=== PATIENT | female | born 1935 | race Caucasian/White ===

== ENCOUNTER 2016-07-29 10:55 | Inpatient (IN) | payer MEDICARE, BC, OTHER ==
[2016-07-29] MEDS ORDERED: ALTEPLASE 2 MG VIAL (CATHFLO) IV STA (11:15)
--- NOTE | 2016-07-29 11:29 | ED ---
General Adult HPI - General Source: EMS, RN notes reviewed Mode of arrival: EMS Limitations: no limitations <Nancy Hassan - Last Filed: 07/29/16 16:37> <James Mcgrath - Last Filed: 07/29/16 16:53> - General Chief complaint: Recheck/Abnormal Lab/Rx Stated complaint: ReCheck Time Seen by Provider: 07/29/16 11:10 - History of Present Illness Initial comments: 80-year-old female presents to the emergency department with a chief complaint of poor functioning Mediport. The patient's Mediport appears to be clogged she was sent here to have it fixed. Patient denies any other symptoms she denies any pain. She states she simply to here several Mediport fixed. Patient denies any recent fever, chills, shortness of breath, chest pain, back pain, abdominal pain, nausea vomiting, numbness or tingling, dysuria or hematuria, constipation or diarrhea, headaches or visual changes, or any other current symptoms. (Nancy Hassan) - Related Data Home Medications Medication Instructions Recorded Confirmed Diclofenac Sodium Gel [Voltaren 4 gm TOPICAL Q12H PRN 09/01/13 07/29/16 Gel] Montelukast Sodium [Singulair] 10 mg PO HS@2100 09/01/13 07/29/16 Phenytoin Sodium Extended 200 mg PO BID@0900,1700 09/01/13 07/29/16 [Dilantin] sitaGLIPtin [Januvia] 100 mg PO DAILY@0900 09/01/13 07/29/16 glipiZIDE [Glucotrol XL] 2.5 mg PO DAILY@1700 05/06/14 07/29/16 Isosorbide Mononitrate ER [Imdur] 30 mg PO DAILY 02/26/15 07/29/16 Gabapentin [Neurontin] 100 mg PO DAILY 12/21/15 07/29/16 Rivaroxaban [Xarelto] 20 mg PO DAILY 12/21/15 07/29/16 Tiotropium [place] [Spiriva 1 cap INHALATION RT-DAILY 12/21/15 07/29/16 Respimat] Atorvastatin [Lipitor] 10 mg PO HS@2100 01/26/16 07/29/16 Levothyroxine Sodium [Synthroid] 200 mcg PO DAILY@0600 01/26/16 07/29/16 Losartan-Hctz 50-12.5 mg [Hyzaar 1 tab PO DAILY 01/26/16 07/29/16 50-12.5] Omeprazole 20 mg PO DAILY 01/26/16 07/29/16 Oxybutynin Xl [Ditropan XL] 5 mg PO DAILY 01/26/16 07/29/16 Hydrocodone/Acetaminophen [[place] 1 tab PO Q6H PRN 05/19/16 07/29/16 10-325] Antifungal Power 1 applic TOPICAL BID 07/29/16 07/29/16 Calcium Carbonate [Calcium] 600 mg PO DAILY 07/29/16 07/29/16 Cetirizine HCl [Zyrtec] 10 mg PO HS@209907/29/16 07/29/16 Clotrimazole/Betamethasone Dip 1 applic TOPICAL BID 07/29/16 07/29/16 [Lotrisone Cream] Furosemide [Lasix] 40 mg PO BID@0600,1400 07/29/16 07/29/16 Metoprolol Tartrate [Lopressor] 12.5 mg PO HS@209907/29/16 07/29/16 Mylanta Susp 30 ml PO Q4H PRN 07/29/16 07/29/16 Potassium Chloride ER [K-Dur 20] 20 meq PO TID 07/29/16 07/29/16 risperiDONE [RisperDAL] 0.25 mg PO HS@209907/29/16 07/29/16 Previous Rx's Medication Instructions Recorded Nitroglycerin Sl Tabs [Nitrostat] 0.4 mg SUBLINGUAL Q5M PRN #0 tab 04/02/15 HYDROcodone/APAP 10-325MG [[place] 1 tab PO BID PRN #60 tab 03/26/16 10-325] Ipratropium-Albuterol Nebulize 3 ml INHALATION RT-Q2H PRN #0 03/26/16 [Duoneb 0.5 mg-3 mg/3 ml Soln] ampul.neb Ipratropium-Albuterol Nebulize 3 ml INHALATION RT-QID ampul.neb 03/26/16 [Duoneb 0.5 mg-3 mg/3 ml Soln] Allergies Allergy/AdvReac Type Severity Reaction Status Date / Time iodine Allergy Itching Verified 07/29/16 11:04 nystatin Allergy Rash/Hives Verified 07/29/16 11:04 orange juice Allergy Unknown Verified 07/29/16 11:04 Penicillins Allergy Rash/Hives Verified 07/29/16 11:04 fluticasone propionate AdvReac Nausea & Verified 07/29/16 11:04 [From Advair Diskus] Vomiting methylprednisolone sodium AdvReac Chest Pain Verified 07/29/16 11:04 succinate [From Solu-Medrol] salmeterol xinafoate AdvReac Nausea & Verified 07/29/16 11:04 [From Advair Diskus] Vomiting vitamin b12/liver shots Allergy Rash/Hives Uncoded 05/19/16 15:14 Review of Systems ROS Other: All systems not noted in ROS Statement are negative. <Nancy Hassan - Last Filed: 07/29/16 16:37> ROS Other: All systems not noted in ROS Statement are negative. <James Mcgrath - Last Filed: 07/29/16 16:53> ROS Statement: Those systems with pertinent positive or pertinent negative responses have been documented in the HPI. Past Medical History Past Medical History: Atrial Fibrillation, Asthma, Coronary Artery Disease (CAD) , Cancer, Chest Pain / Angina, Heart Failure, COPD, Diabetes Mellitus, Deep Vein Thrombosis (DVT), Eye Disorder, GERD/Reflux, GI Bleed, Hearing Disorder / Deafness, Hyperlipidemia, Hypertension, Osteoarthritis (OA), Pneumonia, Seizure Disorder, Thyroid Disorder, Vascular Disorder Additional Past Medical History / Comment(s): Recent UTI with completion of ABX , cellulitis belateral lower extremities, exacerbation of asthma, and weakness, lung cancer(uncertain which side) tx with chemotherapy, Uses home O2 at 2L/NC at nite, last seizure 2007, very [place] L ear, NIDDM, near syncopy, ischemic heart disease, R shoulder arthiritis ,carpal tunnel L wrist, L lower leg/ankle dvt in 1989, chronic lower leg/pedal edema, chronic lower extremity cellulitis, has had wounds under abdominal fold, neuropathy L hand, rhinitis- allergy shots q 2 weeks, lower GI bleed, colitis, anemia, gait dysfunction/debility, macular degeneration bilaterally. History of Any Multi-Drug Resistant Organisms: MRSA Date of last positivie culture/infection: 12/22/2013 MDRO Source:: Left Thigh Past Surgical History: Adenoidectomy, Appendectomy, Bladder Surgery, Breast Surgery, Ear Surgery, Heart Catheterization With Stent, Hysterectomy, Orthopedic Surgery, Tonsillectomy Additional Past Surgical History / Comment(s): bilateral eyelid surgery, infusaport lt subclavian placed 08/24/12, R subclavian infusaport inserted and removed, L shoulder total, R and L knee replacements with the L knee having been done twice, R and L hip replacements, irena cataract removed, L ear surgery- infection with sx, heart stents x2, embolectomy L ankle, breast lumpectomy-pt doesn't know which side or if cancerous, bladder suspension, bronchoscopy, R/L carpal tunnel releases. Past Anesthesia/Blood Transfusion Reactions: No Reported Reaction Additional Past Anesthesia/Blood Transfusion Reaction / Comment(s): Pt has had blood transfusion and no reaction. Date of Last Stent Placement:: 1993 Past Psychological History: No Psychological Hx Reported Additional Psychological History / Comment(s): Pt lives in her own home with her son. Son does the cooking and transports pt wherever she needs to go. Son also manages her meds. Pts mikael is her DPOA. Pt performs her some of her own ADL' s. She ambulates with a walker which has a seat so she can rest if she wants to DENIES ANY FALLS. Pt has home care . She has an aide that showers patient and makes her bed. Smoking Status: Former smoker Past Alcohol Use History: None Reported Additional Past Alcohol Use History / Comment(s): Pt started smoking at age 13 yrs 1949). Pt states she quit smoking in 1998. Past Drug Use History: None Reported - Past Family History Father Family Medical History: Coronary Artery Disease (CAD) Mother Family Medical History: No Reported History Additional Family Medical History / Comment(s): colon <Nancy Hassan - Last Filed: 07/29/16 16:37> General Exam Limitations: no limitations <Nancy Hassan - Last Filed: 07/29/16 16:37> <James Mcgrath - Last Filed: 07/29/16 16:53> - General Exam Comments Initial Comments: General: The patient is awake and alert, in no distress, and does not appear acutely ill. Eye: Pupils are equal, round. Ears, nose, mouth and throat: There are moist mucous membranes. Neck: The neck is supple, there is no tenderness. Cardiovascular: There is a regular rate and rhythm. No murmur, rub or gallop is appreciated. Respiratory: Lungs are clear to auscultation, respirations are non-labored, breath sounds are equal. No wheezes, stridor, rales, or rhonchi. Back: There is no tenderness to palpation in the midline. There is no obvious deformity. No rashes noted. Musculoskeletal: Normal ROM, no tenderness, There is no pedal edema. There is no calf tenderness or swelling. Sensation intact. Pulses equal bilaterally 2+. Neurological: CN II-XII intact, There are no obvious motor or sensory deficits. Coordination appears grossly intact. Speech is normal. Skin: Skin is warm and dry and no rashes or lesions are noted. Psychiatric: Cooperative, appropriate mood & affect, normal judgment. (Nancy Hassan) EKG Findings - EKG Comments: EKG Findings:: Atrial fibrillation, right bundle-branch block, ventricular rate 74, castration 152 <Nancy Hassan - Last Filed: 07/29/16 16:37> Medical Decision Making - Lab Data Result diagrams: 07/29/16 15:22 07/29/16 15:22 <Nancy Hassan - Last Filed: 07/29/16 16:37> - Lab Data Result diagrams: 07/29/16 15:22 07/29/16 15:22 <James Mcgrath - Last Filed: 07/29/16 16:53> - Medical Decision Making 80-year-old female presents emergency department with chief complaint of clogged Mediport. Upon further discussion with the family they state that last night she appeared to have a syncopal episode and she was disoriented. They state that she seemed to be acting abnormal and they are concerned. They state they feel as if she needs more help. This time we did do blood work for the patient that does not show any acute findings however the patient does have concern for this behavior. Patient's lab work is reviewed. As well as CAT scan. At this time there is concern this may have been a syncopal event versus other possible etiologies. CAT scan does not show any acute findings at this time. We will admit the patient to further assess this syncopal like episode with cardiac rule out. This is discussed with the family who is in agreement with plan. (Nancy Hassan) Further discussion had with son who is concerned patient may have had a syncopal episode. Case was also discussed in detail with Dr. Wood, who will admit for Dr. Cotton with consults for Dr. Edgar and cardiology. (James Mcgrath) - Lab Data Lab Results 07/29/16 07/29/16 07/29/16 Range/Units 13:24 14:00 14:00 WBC (3.8-10.6) k/uL RBC (3.80-5.40) m/uL Hgb (11.4-16.0) gm/dL Hct (34.0-46.0) % MCV (80.0-100.0) fL MCH (25.0-35.0) pg MCHC (31.0-37.0) g/dL RDW (11.5-15.5) % Plt Count (150-450) k/uL Neutrophils % % Lymphocytes % % Monocytes % % Eosinophils % % Basophils % % Neutrophils # (1.3-7.7) k/uL Lymphocytes # (1.0-4.8) k/uL Monocytes # (0-1.0) k/uL Eosinophils # (0-0.7) k/uL Basophils # (0-0.2) k/uL Hypochromasia PT (9.0-12.0) sec INR (<1.1) APTT (22.0-30.0) sec Sodium (137-145) mmol/L Potassium (3.5-5.1) mmol/L Chloride (98-107) mmol/L Carbon Dioxide (22-30) mmol/L Anion Gap mmol/L BUN (7-17) mg/dL Creatinine (0.52-1.04) mg/dL Est GFR (MDRD) Af Amer (>60 ml/min/1.73 sqM) Est GFR (MDRD) Non-Af (>60 ml/min/1.73 sqM) Glucose (74-99) mg/dL Calcium (8.4-10.2) mg/dL Total Bilirubin (0.2-1.3) mg/dL AST (14-36) U/L ALT (9-52) U/L Alkaline Phosphatase (38-126) U/L Total Creatine Kinase 31 (30-135) U/L CK-MB (CK-2) 0.5 (0.0-2.4) ng/mL CK-MB (CK-2) Rel Index 1.6 Troponin I <0.012 (0.000-0.034) ng/mL NT-Pro-B Natriuret Pep 996 pg/mL Total Protein (6.3-8.2) g/dL Albumin (3.5-5.0) g/dL Urine Color Yellow Urine Appearance Cloudy H (Clear) Urine pH 7.5 (5.0-8.0) Ur Specific [place] 1.012 (1.001-1.035) Urine Protein Trace H (Negative) Urine Glucose (UA) Negative (Negative) Urine Ketones Negative (Negative) Urine Blood Negative (Negative) Urine Nitrite Negative (Negative) Urine Bilirubin Negative (Negative) Urine Urobilinogen <2.0 (<2.0) mg/dL Ur Leukocyte Esterase Negative (Negative) Urine RBC <1 (0-5) /hpf Urine WBC <1 (0-5) /hpf Ur Squamous Epith Cells 4 (0-4) /hpf Amorphous Sediment Rare H (None) /hpf Hyaline Casts 3 H (0-2) /lpf Urine Mucus Rare H (None) /hpf 07/29/16 07/29/16 07/29/16 Range/Units 14:00 15:22 15:22 WBC 9.1 (3.8-10.6) k/uL RBC 3.62 L (3.80-5.40) m/uL Hgb 10.3 L (11.4-16.0) gm/dL Hct 33.1 L (34.0-46.0) % MCV 91.5 (80.0-100.0) fL MCH 28.3 (25.0-35.0) pg MCHC 31.0 (31.0-37.0) g/dL RDW 15.0 (11.5-15.5) % Plt Count 324 (150-450) k/uL Neutrophils % 55 % Lymphocytes % 32 % Monocytes % 7 % Eosinophils % 3 % Basophils % 1 % Neutrophils # 5.0 (1.3-7.7) k/uL Lymphocytes # 2.9 (1.0-4.8) k/uL Monocytes # 0.6 (0-1.0) k/uL Eosinophils # 0.3 (0-0.7) k/uL Basophils # 0.0 (0-0.2) k/uL Hypochromasia Slight PT 12.6 H (9.0-12.0) sec INR 1.3 (<1.1) APTT 26.2 (22.0-30.0) sec Sodium 138 (137-145) mmol/L Potassium 3.7 (3.5-5.1) mmol/L Chloride 96 L (98-107) mmol/L Carbon Dioxide 33 H (22-30) mmol/L Anion Gap 9 mmol/L BUN 17 (7-17) mg/dL Creatinine 0.85 (0.52-1.04) mg/dL Est GFR (MDRD) Af Amer >60 (>60 ml/min/1.73 sqM) Est GFR (MDRD) Non-Af >60 (>60 ml/min/1.73 sqM) Glucose 85 (74-99) mg/dL Calcium 8.6 (8.4-10.2) mg/dL Total Bilirubin 0.4 (0.2-1.3) mg/dL AST 21 (14-36) U/L ALT 22 (9-52) U/L Alkaline Phosphatase 164 H (38-126) U/L Total Creatine Kinase (30-135) U/L CK-MB (CK-2) (0.0-2.4) ng/mL CK-MB (CK-2) Rel Index Troponin I (0.000-0.034) ng/mL NT-Pro-B Natriuret Pep pg/mL Total Protein 7.2 (6.3-8.2) g/dL Albumin 3.2 L (3.5-5.0) g/dL Urine Color Urine Appearance (Clear) Urine pH (5.0-8.0) Ur Specific [place] (1.001-1.035) Urine Protein (Negative) Urine Glucose (UA) (Negative) Urine Ketones (Negative) Urine Blood (Negative) Urine Nitrite (Negative) Urine Bilirubin (Negative) Urine Urobilinogen (<2.0) mg/dL Ur Leukocyte Esterase (Negative) Urine RBC (0-5) /hpf Urine WBC (0-5) /hpf Ur Squamous Epith Cells (0-4) /hpf Amorphous Sediment (None) /hpf Hyaline Casts (0-2) /lpf Urine Mucus (None) /hpf Disposition Time of Disposition: 16:00 Decision Date: 07/29/16 Decision Time: 16:00 <Nancy Hassan - Last Filed: 07/29/16 16:37> <James Mcgrath - Last Filed: 07/29/16 16:53> Clinical Impression: Syncope, At risk for readmission to hospital, Dyspnea, Chronic ischemic heart disease, Right bundle branch block, Atrial fibrillation Disposition: ADMITTED IP TO THIS HOSP Condition: Stable Referrals: Margarito Cotton MD [Primary Care Provider] - 1-2 days
--- NOTE | 2016-07-29 12:08 | XR ---
EXAMINATION TYPE: XR chest 2V DATE OF EXAM: 07/29/2016 12:02 PM COMPARISON: Prior chest x-ray March 24, 2016 HISTORY: Cough per order. Poor functioning Mediport catheter. TECHNIQUE: Frontal and lateral views of the chest are obtained. FINDINGS: A left subclavian Mediport catheter is stable in appearance. There is chronic parenchymal c hange without suspicious focal air space opacity, pleural effusion, or pneumothorax seen. The cardia c silhouette size is enlarged. Metallic hardware left shoulder level is partially imaged. Advanced de generative change right glenohumeral joint is redemonstrated. Surgical clips in the left breast are s een on lateral view. IMPRESSION: Cardiomegaly and chronic parenchymal changes without acute pulmonary process.
[2016-07-29] MEDS ORDERED: LIDOCAINE-PRILOCAINE 2.5-2.5% CREAM 5 GM TUBE TOPICAL STA (12:33)
[2016-07-29] MEDS ORDERED: SODIUM CHLORIDE 0.9% 1,000 ML IV STA (13:00)
[2016-07-29 13:58] LABS: Amorphous Sediment,Urine Rare /hpf; Appearance,Urine Cloudy (Clear); Bilirubin,Urine Negative (Negative); Glucose,Urine (UA) Negative (Negative); Ketones,Urine Negative (Negative); Leukocyte Esterase,Urine Negative (Negative); Mucus,Urine Rare /hpf; Nitrite,Urine Negative (Negative); PH, Urine 7.5 (5.0-8.0); Particle Count 5051; Protein,Urine Trace (Negative); RBC,Urine <1 /hpf (0-5); Specific Gravity,Urine 1.012 (1.001-1.035); Squamous Epithelial Cell,Urine 4 /hpf (0-4); UA Billing (MACRO vs. MICRO) MICRO; Urobilinogen,Urine <2.0 mg/dL (<2.0); WBC,Urine <1 /hpf (0-5)
[2016-07-29 14:30] LABS: Creatine Kinase 31 U/L (30-135)
[2016-07-29 14:38] LABS: INR 1.3 (<1.1); Partial Thromboplastin Time 26.2 sec (22.0-30.0); Prothrombin Time 12.6 sec (9.0-12.0)
[2016-07-29 14:41] LABS: Creatine Kinase MB 0.5 ng/mL (0.0-2.4); Troponin I <0.012 ng/mL (0.000-0.034)
[2016-07-29] MEDS ORDERED: LORazepam 2 MG/ML SYRINGE IV STA (15:00)
[2016-07-29 15:26] LABS: Basophils % (A) 1 %; CHCM 30.7; Eosinophils # (A) 0.3 k/uL (0-0.7); Eosinophils % (A) 3 %; HCT 33.1 % (34.0-46.0); HDW 2.44; HGB 10.3 gm/dL (11.4-16.0); Hypochromasia Slight; Luc # (Auto) 0.27; Luc % (Auto) 3; Lymphocytes # (A) 2.9 k/uL (1.0-4.8); Lymphocytes % (A) 32 %; MCH 28.3 pg (25.0-35.0); MCV 91.5 fL (80.0-100.0); Mean Platelet Volume 6.9; Monocytes # (A) 0.6 k/uL (0-1.0); Monocytes % (A) 7 %; Neutrophils % (A) 55 %; RBC 3.62 m/uL (3.80-5.40); WBC 9.1 k/uL (3.8-10.6)
[2016-07-29 15:40] LABS: ALT 22 U/L (9-52); AST 21 U/L (14-36); Alkaline Phosphatase 164 U/L (38-126); Anion Gap 9 mmol/L; Blood Urea Nitrogen 17 mg/dL (7-17); Calcium 8.6 mg/dL (8.4-10.2); Carbon Dioxide 33 mmol/L (22-30); Chloride 96 mmol/L (98-107); Glucose 85 mg/dL (74-99); Non-African American GFR(MDRD) >60 (>60 ml/min/1.73 sqM); Potassium 3.7 mmol/L (3.5-5.1); Sodium 138 mmol/L (137-145); Total Bilirubin 0.4 mg/dL (0.2-1.3); Total Protein 7.2 g/dL (6.3-8.2)
--- NOTE | 2016-07-29 15:55 | CT ---
EXAMINATION TYPE: CT brain wo con DATE OF EXAM: 07/29/2016 3:51 PM COMPARISON: 08/09/2015 HISTORY: mental status changes CT DLP: 1072.[address] of the brain was performed. The ventricles, basal cisterns and sulci overlying the cerebral convexities demonstrate mild enlargem ent. There is no evidence for intracranial hemorrhage or sulcal effacement. There is decreased attenuation about the periventricular white matter and deep white matter of both c erebral hemispheres, compatible with chronic small vessel ischemia. Differential diagnosis does inclu de demyelination. No mass effects are seen.No midline shift. Osseous calvarium is intact. If symptoms persist consider MRI. IMPRESSION: 1. Age related atrophic and chronic small vessel ischemic change without acute intracranial process s een at this time.
[2016-07-29] MEDS ORDERED: HYDROcodone/APAP 10-325MG 1 EACH TAB PO PRN ×2 (16:00)
[2016-07-29] MEDS ORDERED: NITROGLYCERIN SL TABS 0.4 MG TAB SUBLINGUAL PRN (16:00)
[2016-07-29] MEDS ORDERED: MAG HYDROX/AL HYDROX/SIMETH 30 ML CUP PO PRN (16:00)
[2016-07-29] MEDS ORDERED: DICLOFENAC SODIUM GEL 100 GM TUBE TOPICAL PRN (16:00)
[2016-07-29] MEDS ORDERED: IPRATROPIUM-ALBUTEROL 3 ML NEB INHALATION PRN (16:00)
[2016-07-29] MEDS ORDERED: NALOXONE 0.4 MG/ML 1 ML VIAL IV PRN (16:37)
[2016-07-29] MEDS: PHENYTOIN SODIUM EXTENDED 100 MG CAP PO SCH ×2 (18:58→19:01)
--- NOTE | 2016-07-29 20:48 | P.CNNES ---
History of Present Illness Consult date: 07/29/16 Reason for Consult: Patient with syncopal episode and confusion. History of Present Illness: This patient is a 80-year-old right-handed white female was brought into the emergency room today for evaluation of a poorly functioning MediPort. Patient is currently residing at [facility] and was brought in for further evaluation. Patient has multiple complex medical issues in the past including chronic atrial fibrillation, diabetes mellitus, seizure disorder, and cardiac arrhythmia. She states that she was not feeling well and had episode of dizziness and lightheadedness. Apparently she has had multiple admissions in the past for syncope. She is currently on Dilantin monotherapy for seizure management as well. Dilantin level was not checked today on admission through the ER. A stat Dilantin is pending at this time. Patient states that she has been taking all of her medications as prescribed. She states the MediPort was the main reason for admission to the hospital ER today. She is able to provide fairly accurate history but is unaware of this syncopal episode earlier today. Apparently the family noted that last night she appeared to have had a syncopal episode at the [facility]. She was very disoriented. They feel that her mental status has not returned normal as well. She was brought in to the emergency room and was seen in the ER by Dr. Mcgrath. She was sent for a computed tomography scan of the brain today which revealed age-related atrophy and chronic small vessel ischemic changes. No acute intracranial process was detected. Patient states she is recovering from recent episode of weakness. She has been treated for recent episode of sepsis. She did have a syncopal episode in August of last year which was negative for workup. She is able to provide fairly good history but once again is not aware of the details of a syncopal episode yesterday. Neurology is now consulted for further evaluation and recommendations. Review of Systems Constitutional: Denies chills, Denies fever Eyes: denies blurred vision, denies pain Ears, nose, mouth and throat: Denies headache, Denies sore throat Cardiovascular: Denies chest pain, Denies shortness of breath Respiratory: Denies cough Gastrointestinal: Denies abdominal pain, Denies diarrhea, Denies nausea, Denies vomiting Genitourinary: Denies dysuria, Denies hematuria Musculoskeletal: Denies myalgias Integumentary: Denies pruritus, Denies rash Neurological: Reports change in mentation, Reports gait dysfunction, Reports syncope, Denies numbness, Denies weakness Psychiatric: Denies anxiety, Denies depression Endocrine: Denies fatigue, Denies weight change Past Medical History Past Medical History: Atrial Fibrillation, Asthma, Coronary Artery Disease (CAD) , Cancer, Chest Pain / Angina, Heart Failure, COPD, Diabetes Mellitus, Deep Vein Thrombosis (DVT), Eye Disorder, GERD/Reflux, GI Bleed, Hearing Disorder / Deafness, Hyperlipidemia, Hypertension, Osteoarthritis (OA), Pneumonia, Seizure Disorder, Thyroid Disorder, Vascular Disorder Additional Past Medical History / Comment(s): Recent UTI with completion of ABX , cellulitis belateral lower extremities, exacerbation of asthma, and weakness, lung cancer(uncertain which side) tx with chemotherapy, Uses home O2 at 2L/NC at nite, last seizure 2007, very [place] L ear, NIDDM, near syncopy, ischemic heart disease, R shoulder arthiritis ,carpal tunnel L wrist, L lower leg/ankle dvt in 1989, chronic lower leg/pedal edema, chronic lower extremity cellulitis, has had wounds under abdominal fold, neuropathy L hand, rhinitis- allergy shots q 2 weeks, lower GI bleed, colitis, anemia, gait dysfunction/debility, macular degeneration bilaterally. History of Any Multi-Drug Resistant Organisms: MRSA Date of last positivie culture/infection: 12/22/2013 MDRO Source:: Left Thigh Past Surgical History: Adenoidectomy, Appendectomy, Bladder Surgery, Breast Surgery, Ear Surgery, Heart Catheterization With Stent, Hysterectomy, Orthopedic Surgery, Tonsillectomy Additional Past Surgical History / Comment(s): bilateral eyelid surgery, infusaport lt subclavian placed 08/24/12, R subclavian infusaport inserted and removed, L shoulder total, R and L knee replacements with the L knee having been done twice, R and L hip replacements, irena cataract removed, L ear surgery- infection with sx, heart stents x2, embolectomy L ankle, breast lumpectomy-pt doesn't know which side or if cancerous, bladder suspension, bronchoscopy, R/L carpal tunnel releases. Past Anesthesia/Blood Transfusion Reactions: No Reported Reaction Additional Past Anesthesia/Blood Transfusion Reaction / Comment(s): Pt has had blood transfusion and no reaction. Date of Last Stent Placement:: 1993 Past Psychological History: No Psychological Hx Reported Additional Psychological History / Comment(s): PT CURRENTLY RESIDES AT [facility]. Pts mikael is her DPOA. Pt NEEDS ASSIT W/ADLS AND FROM BED TO CHAIR. Smoking Status: Former smoker Past Alcohol Use History: None Reported Additional Past Alcohol Use History / Comment(s): Pt started smoking at age 13 yrs 1949). Pt states she quit smoking in 1998. Past Drug Use History: None Reported - Past Family History Father Family Medical History: Coronary Artery Disease (CAD) Mother Family Medical History: Cancer Additional Family Medical History / Comment(s): colon Medications and Allergies Home Medications Medication Instructions Recorded Confirmed Type Diclofenac Sodium Gel [Voltaren 4 gm TOPICAL Q12H PRN 09/01/13 07/29/16 History Gel] Montelukast Sodium [Singulair] 10 mg PO HS@2100 09/01/13 07/29/16 History Phenytoin Sodium Extended 200 mg PO BID@0900,1700 09/01/13 07/29/16 History [Dilantin] sitaGLIPtin [Januvia] 100 mg PO DAILY@0900 09/01/13 07/29/16 History glipiZIDE [Glucotrol XL] 2.5 mg PO DAILY@1700 05/06/14 07/29/16 History Isosorbide Mononitrate ER [Imdur] 30 mg PO DAILY 02/26/15 07/29/16 History Gabapentin [Neurontin] 100 mg PO DAILY 12/21/15 07/29/16 History Rivaroxaban [Xarelto] 20 mg PO DAILY 12/21/15 07/29/16 History Tiotropium [place] [Spiriva 1 cap INHALATION RT-DAILY 12/21/15 07/29/16 History Respimat] Atorvastatin [Lipitor] 10 mg PO HS@2100 01/26/16 07/29/16 History Levothyroxine Sodium [Synthroid] 200 mcg PO DAILY@0600 01/26/16 07/29/16 History Losartan-Hctz 50-12.5 mg [Hyzaar 1 tab PO DAILY 01/26/16 07/29/16 History 50-12.5] Omeprazole 20 mg PO DAILY 01/26/16 07/29/16 History Oxybutynin Xl [Ditropan XL] 5 mg PO DAILY 01/26/16 07/29/16 History Hydrocodone/Acetaminophen [[place] 1 tab PO Q6H PRN 05/19/16 07/29/16 History 10-325] Antifungal Power 1 applic TOPICAL BID 07/29/16 07/29/16 History Calcium Carbonate [Calcium] 600 mg PO DAILY 07/29/16 07/29/16 History Cetirizine HCl [Zyrtec] 10 mg PO HS@209907/29/16 07/29/16 History Clotrimazole/Betamethasone Dip 1 applic TOPICAL BID 07/29/16 07/29/16 History [Lotrisone Cream] Furosemide [Lasix] 40 mg PO BID@0600,1400 07/29/16 07/29/16 History Metoprolol Tartrate [Lopressor] 12.5 mg PO HS@209907/29/16 07/29/16 History Mylanta Susp 30 ml PO Q4H PRN 07/29/16 07/29/16 History Potassium Chloride ER [K-Dur 20] 20 meq PO TID 07/29/16 07/29/16 History risperiDONE [RisperDAL] 0.25 mg PO HS@209907/29/16 07/29/16 History Allergies Allergy/AdvReac Type Severity Reaction Status Date / Time iodine Allergy Itching Verified 07/29/16 11:04 nystatin Allergy Rash/Hives Verified 07/29/16 11:04 orange juice Allergy Unknown Verified 07/29/16 11:04 Penicillins Allergy Rash/Hives Verified 07/29/16 11:04 fluticasone propionate AdvReac Nausea & Verified 07/29/16 11:04 [From Advair Diskus] Vomiting methylprednisolone sodium AdvReac Chest Pain Verified 07/29/16 11:04 succinate [From Solu-Medrol] peas AdvReac Unknown Verified 07/29/16 20:02 salmeterol xinafoate AdvReac Nausea & Verified 07/29/16 11:04 [From Advair Diskus] Vomiting vitamin b12/liver shots Allergy Rash/Hives Uncoded 05/19/16 15:14 Physical Examination - Vital Signs Vital Signs: Vital Signs Temp Pulse Resp BP Pulse Ox 07/29/16 19:29 98.3 F 81 20 152/77 95 07/29/16 18:49 98.7 F 84 18 143/64 98 - Constitutional General appearance: cooperative, obese - EENT EENT: PERRL, mucous membranes moist - Respiratory Respiratory: lungs clear, normal breath sounds - Cardiovascular Cardiovascular: normal S1, normal S2 Extremities: no peripheral edema bilaterally - Gastrointestinal Gastrointestinal: normoactive bowel sounds - Integumentary Integumentary: normal - Neurologic Cranial nerve examination: PERRL, EOMI, VFF, V1/V2/V3 grossly intact, face symmetric, tongue midline, intact gag reflex, intact corneal reflex, normal palatal elevation Speech examination: intact Sensorimotor examination: intact Detailed motor examination: grossly full strength in all extremities Motor examination - right side: 4/5: biceps, triceps, wrist flexion, wrist extension, stem processing machine operator, hip flexors, knee extensors, dorsiflexion, toe extension (EHL) , plantarflexion Motor examination - left side: 4/5: biceps, triceps, wrist flexion, wrist extension, stem processing machine operator, hip flexors, knee extensors, dorsiflexion, toe extension (EHL) , plantarflexion Detailed sensory examination: intact Reflex and gait examination: intact Reflexes: 1+: ankle, bicep, knee, tricep - Musculoskeletal Musculoskeletal: no pain - Psychiatric Psychiatric: mood/affect appropriate, cooperative Results - Laboratory Findings CBC and BMP: 07/29/16 15:22 07/29/16 15:22 Assessment and Plan (1) Syncope Status: Acute Code(s): R55 - SYNCOPE AND COLLAPSE (2) Encephalopathy Status: Acute Code(s): G93.40 - ENCEPHALOPATHY, UNSPECIFIED (3) Atrial fibrillation Status: Acute Code(s): I48.91 - UNSPECIFIED ATRIAL FIBRILLATION (4) Right bundle branch block Status: Acute Code(s): I45.10 - UNSPECIFIED RIGHT BUNDLE-BRANCH BLOCK Plan: This patient is a 80-year-old female admitted with episode of syncope yesterday evening at the [facility]. Apparently her family noted that she did have a syncopal episode yesterday and appeared to be disoriented. She was brought into the emergency for further evaluation of possible malfunctioning MediPort. She was seen in the ER by Dr. Mcgrath who ordered a CAT scan of the brain which was reported negative for any acute changes per she was subsequent admitted to Hospital. Patient does have a history of seizure disorder. We have ordered a stat Dilantin level and this will be adjusted if needed. We will obtain routine EEG to rule out underlying seizure disorder as a cause of syncope. She is being evaluated by cardiology for right bundle branch block. We will await further recommendations from cardiology. Patient likely will need to return to [facility] at the time of discharge. She does have evidence of an underlying encephalopathy which may be chronic in nature. We will continue close neurological follow-up of this patient during this admission. Her overall prognosis at this time remains guarded. Time with Patient: Greater than 30
[2016-07-29] MEDS ORDERED: [UNRECOGNIZED DRUG - OTHER] TOPICAL SCH (21:00)
[2016-07-29 21:08] LABS: Glucose,Whole Blood 117 mg/dL (75-99)
[2016-07-29] MEDS: SODIUM CHLORIDE 0.9% 1,000 ML IV SCH (21:34)
[2016-07-29] MEDS: LORATADINE 10 MG TAB PO SCH (21:41)
[2016-07-29] MEDS: ATORVASTATIN 10 MG TAB PO SCH (21:41)
[2016-07-29] MEDS: MONTELUKAST 10 MG TAB PO SCH (21:42)
[2016-07-29] MEDS: METOPROLOL TARTRATE 12.5 MG TAB PO SCH (21:42)
[2016-07-29] MEDS: risperiDONE 0.25 MG TAB PO SCH (21:42)
[2016-07-29] MEDS: POTASSIUM CHLORIDE ER 20 MEQ TAB.ER PO SCH (21:42)
[2016-07-29] MEDS: CLOTRIMAZOLE/BETAMETH 1-0.05% CREAM 45 GM TUBE TOPICAL SCH (21:48)
[2016-07-29] MEDS: IPRATROPIUM-ALBUTEROL 3 ML NEB INHALATION SCH (22:10)
[2016-07-29 22:23] LABS: Creatine Kinase 33 U/L (30-135)
[2016-07-29 22:34] LABS: Creatine Kinase MB 0.4 ng/mL (0.0-2.4); Troponin I <0.012 ng/mL (0.000-0.034)
[2016-07-30] MEDS: FUROSEMIDE 40 MG TAB PO SCH ×2 (05:23→14:10)
[2016-07-30] MEDS: LEVOTHYROXINE 100 MCG TAB PO SCH (05:23)
[2016-07-30 05:45] LABS: Glucose,Whole Blood 128 mg/dL (75-99)
[2016-07-30 06:34] LABS: Creatine Kinase 32 U/L (30-135)
[2016-07-30 06:47] LABS: Creatine Kinase MB 0.5 ng/mL (0.0-2.4); Troponin I <0.012 ng/mL (0.000-0.034)
[2016-07-30] MEDS: IPRATROPIUM-ALBUTEROL 3 ML NEB INHALATION SCH ×4 (08:49→19:55)
[2016-07-30] MEDS ORDERED: RIVAROXABAN 10 MG TAB PO SCH (09:00)
[2016-07-30] MEDS: CALCIUM CARBONATE 500 MG CHEWABLE PO SCH (10:08)
[2016-07-30] MEDS: LOSARTAN-HCTZ 50-12.5 MG 1 EACH TAB PO SCH (10:08)
[2016-07-30] MEDS: GABAPENTIN 100 MG CAP PO SCH (10:08)
[2016-07-30] MEDS: PHENYTOIN SODIUM EXTENDED 100 MG CAP PO SCH ×2 (10:09→17:32)
[2016-07-30] MEDS: OXYBUTYNIN XL 5 MG TAB.ER.24 PO SCH (10:09)
[2016-07-30] MEDS: LINAGLIPTIN 5 MG TABLET PO SCH (10:09)
[2016-07-30] MEDS: POTASSIUM CHLORIDE ER 20 MEQ TAB.ER PO SCH ×3 (10:09→22:14)
[2016-07-30] MEDS: ISOSORBIDE MONONITRATE ER 30 MG TAB.ER.24H PO SCH (10:09)
[2016-07-30] MEDS: CLOTRIMAZOLE/BETAMETH 1-0.05% CREAM 45 GM TUBE TOPICAL SCH ×2 (10:09→22:15)
[2016-07-30] MEDS: PANTOPRAZOLE 40 MG TABLET PO SCH (10:09)
[2016-07-30 11:51] LABS: Glucose,Whole Blood 207 mg/dL (75-99)
--- NOTE | 2016-07-30 11:57 | ECHOF ---
Referral Reason:syncope MEASUREMENTS -------- HEIGHT: 129.5 cm WEIGHT: 101.6 kg BP: 121/53 IVSd: 1.3 cm (0.6 - 1.1) LVIDd: 3.1 cm (3.9 - 5.3) LVPWd: 1.5 cm (0.6 - 1.1) IVSs: 2.2 cm LVIDs: 1.6 cm LVPWs: 1.4 cm Ao Diam: 3.5 cm (2.0 - 3.7) AV Cusp: 1.4 cm (1.5 - 2.6) LA Diam: 3.6 cm (2.7 - 3.8) MV EXCURSION: 11.453 mm (> 18.000) MV EF SLOPE: 34 mm/s (70 - 150) EPSS: 0.6 cm MV E Brent: 1.05 m/s MV DecT: 232 ms MV A Brent: 0.32 m/s MV E/A Ratio: 3.30 RAP: 5.00 mmHg RVSP: 27.65 mmHg FINDINGS -------- Atrial fibrillation. This was a technically difficult study with suboptimal views. There is mild concentric left ventricular hypertrophy. Overall left ventricular systolic function is normal with, an EF between 55 - 60 %. The right ventricle is normal in size and function. The left atrium is normal in size. The right atrium is normal in size. The aortic valve is trileaflet, and appears structurally normal. No aortic stenosis or regurgitation. The mitral valve leaflets are mildly thickened. Mild mitral regurgitation is present. Mild tricuspid regurgitation present. The right ventricular systolic pressure, as measured by Doppler, is 27.65mmHg. Pulmonic valve appears structurally normal. The aortic root size is normal. The pericardium is normal. CONCLUSIONS -------- 1. Atrial fibrillation. 2. Mild mitral regurgitation is present. 3. Mild tricuspid regurgitation present. 4. The right ventricular systolic pressure, as measured by Doppler, is 27.65mmHg. 5. Pulmonic valve appears structurally normal. 6. The aortic root size is normal. 7. The pericardium is normal. 8. This was a technically difficult study with suboptimal views. 9. There is mild concentric left ventricular hypertrophy. 10. Overall left ventricular systolic function is normal with, an EF between 55 - 60 %. 11. The right ventricle is normal in size and function. 12. The left atrium is normal in size. 13. The right atrium is normal in size. 14. The aortic valve is trileaflet, and appears structurally normal. No aortic stenosis or regurgitation. 15. The mitral valve leaflets are mildly thickened. FLAT FINISHER: Lily Menendez RDCS
--- NOTE | 2016-07-30 12:04 | P.HPIM ---
History of Present Illness H&P Date: 07/30/16 Chief Complaint: Syncope This is an 80-year-old female who presented to the emergency department. The patient states she is not sure why she is here. Per the medical record the patient had a syncopal episode. She also had issues with her Mediport. No family is at bedside for further history. Per the medical record the patient's family stated she had a syncopal episode and was disoriented. The patient has apparently had these issues in the past. She also has a history of seizure disorder. Neurology has been consulted. CT of the brain showed no acute findings. Review of Systems All systems: negative Past Medical History Past Medical History: Atrial Fibrillation, Asthma, Coronary Artery Disease (CAD) , Cancer, Chest Pain / Angina, Heart Failure, COPD, Diabetes Mellitus, Deep Vein Thrombosis (DVT), Eye Disorder, GERD/Reflux, GI Bleed, Hearing Disorder / Deafness, Hyperlipidemia, Hypertension, Osteoarthritis (OA), Pneumonia, Seizure Disorder, Thyroid Disorder, Vascular Disorder Additional Past Medical History / Comment(s): Recent UTI with completion of ABX , cellulitis belateral lower extremities, exacerbation of asthma, and weakness, lung cancer(uncertain which side) tx with chemotherapy, Uses home O2 at 2L/NC at nite, last seizure 2007, very [place] L ear, NIDDM, near syncopy, ischemic heart disease, R shoulder arthiritis ,carpal tunnel L wrist, L lower leg/ankle dvt in 1989, chronic lower leg/pedal edema, chronic lower extremity cellulitis, has had wounds under abdominal fold, neuropathy L hand, rhinitis- allergy shots q 2 weeks, lower GI bleed, colitis, anemia, gait dysfunction/debility, macular degeneration bilaterally. History of Any Multi-Drug Resistant Organisms: MRSA Date of last positivie culture/infection: 12/22/2013 MDRO Source:: Left Thigh Past Surgical History: Adenoidectomy, Appendectomy, Bladder Surgery, Breast Surgery, Ear Surgery, Heart Catheterization With Stent, Hysterectomy, Orthopedic Surgery, Tonsillectomy Additional Past Surgical History / Comment(s): bilateral eyelid surgery, infusaport lt subclavian placed 08/24/12, R subclavian infusaport inserted and removed, L shoulder total, R and L knee replacements with the L knee having been done twice, R and L hip replacements, irena cataract removed, L ear surgery- infection with sx, heart stents x2, embolectomy L ankle, breast lumpectomy-pt doesn't know which side or if cancerous, bladder suspension, bronchoscopy, R/L carpal tunnel releases. Past Anesthesia/Blood Transfusion Reactions: No Reported Reaction Additional Past Anesthesia/Blood Transfusion Reaction / Comment(s): Pt has had blood transfusion and no reaction. Date of Last Stent Placement:: 1993 Past Psychological History: No Psychological Hx Reported Additional Psychological History / Comment(s): PT CURRENTLY RESIDES AT [facility]. Pts mikael is her DPOA. Pt NEEDS ASSIT W/ADLS AND FROM BED TO CHAIR. Smoking Status: Former smoker Past Alcohol Use History: None Reported Additional Past Alcohol Use History / Comment(s): Pt started smoking at age 13 yrs 1949). Pt states she quit smoking in 1998. Past Drug Use History: None Reported - Past Family History Father Family Medical History: Coronary Artery Disease (CAD) Mother Family Medical History: Cancer Additional Family Medical History / Comment(s): colon Medications and Allergies Home Medications Medication Instructions Recorded Confirmed Type Diclofenac Sodium Gel [Voltaren 4 gm TOPICAL Q12H PRN 09/01/13 07/29/16 History Gel] Montelukast Sodium [Singulair] 10 mg PO HS@2100 09/01/13 07/29/16 History Phenytoin Sodium Extended 200 mg PO BID@0900,1700 09/01/13 07/29/16 History [Dilantin] sitaGLIPtin [Januvia] 100 mg PO DAILY@0900 09/01/13 07/29/16 History glipiZIDE [Glucotrol XL] 2.5 mg PO DAILY@1700 05/06/14 07/29/16 History Isosorbide Mononitrate ER [Imdur] 30 mg PO DAILY 02/26/15 07/29/16 History Gabapentin [Neurontin] 100 mg PO DAILY 12/21/15 07/29/16 History Rivaroxaban [Xarelto] 20 mg PO DAILY 12/21/15 07/29/16 History Tiotropium [place] [Spiriva 1 cap INHALATION RT-DAILY 12/21/15 07/29/16 History Respimat] Atorvastatin [Lipitor] 10 mg PO HS@2100 01/26/16 07/29/16 History Levothyroxine Sodium [Synthroid] 200 mcg PO DAILY@0600 01/26/16 07/29/16 History Losartan-Hctz 50-12.5 mg [Hyzaar 1 tab PO DAILY 01/26/16 07/29/16 History 50-12.5] Omeprazole 20 mg PO DAILY 01/26/16 07/29/16 History Oxybutynin Xl [Ditropan XL] 5 mg PO DAILY 01/26/16 07/29/16 History Hydrocodone/Acetaminophen [[place] 1 tab PO Q6H PRN 05/19/16 07/29/16 History 10-325] Antifungal Power 1 applic TOPICAL BID 07/29/16 07/29/16 History Calcium Carbonate [Calcium] 600 mg PO DAILY 07/29/16 07/29/16 History Cetirizine HCl [Zyrtec] 10 mg PO HS@209907/29/16 07/29/16 History Clotrimazole/Betamethasone Dip 1 applic TOPICAL BID 07/29/16 07/29/16 History [Lotrisone Cream] Furosemide [Lasix] 40 mg PO BID@0600,1400 07/29/16 07/29/16 History Metoprolol Tartrate [Lopressor] 12.5 mg PO HS@2100 07/29/16 07/29/16 History Mylanta Susp 30 ml PO Q4H PRN 07/29/16 07/29/16 History Potassium Chloride ER [K-Dur 20] 20 meq PO TID 07/29/16 07/29/16 History risperiDONE [RisperDAL] 0.25 mg PO HS@2100 07/29/16 07/29/16 History Allergies Allergy/AdvReac Type Severity Reaction Status Date / Time iodine Allergy Itching Verified 07/29/16 11:04 nystatin Allergy Rash/Hives Verified 07/29/16 11:04 orange juice Allergy Unknown Verified 07/29/16 11:04 Penicillins Allergy Rash/Hives Verified 07/29/16 11:04 fluticasone propionate AdvReac Nausea & Verified 07/29/16 11:04 [From Advair Diskus] Vomiting methylprednisolone sodium AdvReac Chest Pain Verified 07/29/16 11:04 succinate [From Solu-Medrol] peas AdvReac Unknown Verified 07/29/16 20:02 salmeterol xinafoate AdvReac Nausea & Verified 07/29/16 11:04 [From Advair Diskus] Vomiting vitamin b12/liver shots Allergy Rash/Hives Uncoded 05/19/16 15:14 Physical Exam Osteopathic Statement: *. No significant issues noted on an osteopathic structural exam other than those noted in the History and Physical/Consult. Vitals: Vital Signs Temp Pulse Pulse Pulse Resp BP BP 07/30/16 08:00 72 16 138/83 07/30/16 04:00 97.8 F 65 18 121/53 07/30/16 00:00 97.1 F L 70 70 18 121/58 07/29/16 20:00 72 72 18 126/58 07/29/16 19:29 98.3 F 81 20 152/77 07/29/16 18:49 98.7 F 84 18 143/64 Pulse Ox 07/30/16 08:00 97 07/30/16 04:00 97 07/30/16 00:00 94 L 07/29/16 20:00 98 07/29/16 19:29 95 07/29/16 18:49 98 Intake and Output 07/29/16 07/30/16 07/30/16 22:59 06:59 14:59 Intake Total 118 Output Total 200 Balance -200 118 Intake: Oral 118 Output: Urine 200 Other: Voiding Method Bedside Commode Bedside Commode Bedside Commode Incontinent Incontinent Incontinent # Voids 1 Weight 100 kg 101.8 kg Gen.: Patient is alert and oriented 3, no acute distress, sitting up in chair Cardiovascular: Regular rate and rhythm, S1/S2 Lungs: Coarse breath sounds bilaterally Abdomen: Soft nontender nondistended positive bowel sounds Extremities: No edema Results CBC & Chem 7: 07/29/16 15:22 07/29/16 15:22 Labs: Abnormal Lab Results - Last 24 Hours (Table) 07/29/16 07/30/16 07/30/16 Range/Units 21:06 05:43 11:48 POC Glucose (mg/dL) 117 H 128 H 207 H (75-99) mg/dL Chest x-ray: report reviewed, image reviewed CT Scan - head: report reviewed, image reviewed Thrombosis Risk Factor Assmnt - DVT/VTE Prophylaxis DVT/VTE Prophylaxis: Pharmacologic Prophylaxis ordered - Choose All That Apply Any of the Below Risk Factors Present?: Yes Each Factor Represents 1 point: Abnormal pulmonary function (COPD), Obesity ( BMI >25), Serious lung disease incl. pneumonia (< 1month) Other Risk Factors: Yes Each Risk Factor Represents 2 Points: Malignancy Each Risk Factor Represents 3 Points: Age 75 years or older, History of DVT/PE Other congenital or acquired thrombophilia - If yes, enter type in comment: No Thrombosis Risk Factor Assessment Total Risk Factor Score: 11 Thrombosis Risk Factor Assessment Level: High Risk Assessment and Plan Plan: Syncope Metabolic encephalopathy History of atrial fibrillation Right bundle-branch block Anemia, normochromic normocytic History of asthma, not acutely exacerbated Diabetes mellitus type 2 History of DVT GERD Dyslipidemia Hypertension Seizure disorder Hypothyroidism Chronic debility Chronic lymphedema ALLERGIC rhinitis History of colitis O2 to maintain saturation greater than or equal to 88% Neurology recommendations Cardiology recommendations Continue patient's home medications Monitor labs EEG pending Echocardiogram reviewed Incentive spirometry and pulmonary hygiene GI and DVT prophylaxis: Xarelto and Protonix Patient seen and examined covering for Dr. Margarito Cotton
--- NOTE | 2016-07-30 13:37 | P.CRDCN ---
History of Present Illness Consult date: 07/30/16 Requesting physician: Willian Wood Reason for Consult (text): Dizziness Chief complaint: Poorly functioning MediPort History of present illness: This is a pleasant 79-year-old female who follows regularly with Dr. Wilcox in the office. She has a known history of coronary artery disease with prior PCI's, atrial fibrillation, hypertension, hyperlipidemia, diabetes, seizure disorder, hypothyroidism, and chronic anemia. She resides at an extended care facility. Apparently the patient was admitted to the hospital because it appeared that her MediPort was clogged. There was also some suggestion in the medical record that the patient may have had some dizziness and near syncope. Patient does have some dementia, however she does not recall having any dizziness or lightheadedness, denies any syncope. Patient denies any shortness of breath, she does state occasionally that she gets chest pain when she takes a deep breath. Echocardiogram with Doppler study was performed which revealed a normal left ventricular systolic function. Patient has had admissions to the hospital for syncopal episodes which have been negative in the past. Her most recent admission to the hospital was in March 2016. She has been hemodynamically stable, blood pressure 138/80 with a heart rate in the 70s, afebrile. 97% on 2 L of oxygen. Hemoglobin 10.3, platelet count 324, potassium 3.7, BUN 17, creatinine 0.8. Troponins have been negative 3. EKG shows atrial fibrillation with a controlled ventricular response and right bundle branch block pattern. CAT scan of the brain was performed which did not reveal any significant changes. Past Medical History Past Medical History: Atrial Fibrillation, Asthma, Coronary Artery Disease (CAD) , Cancer, Chest Pain / Angina, Heart Failure, COPD, Diabetes Mellitus, Deep Vein Thrombosis (DVT), Eye Disorder, GERD/Reflux, GI Bleed, Hearing Disorder / Deafness, Hyperlipidemia, Hypertension, Osteoarthritis (OA), Pneumonia, Seizure Disorder, Thyroid Disorder, Vascular Disorder Additional Past Medical History / Comment(s): Recent UTI with completion of ABX , cellulitis belateral lower extremities, exacerbation of asthma, and weakness, lung cancer(uncertain which side) tx with chemotherapy, Uses home O2 at 2L/NC at nite, last seizure 2007, very [place] L ear, NIDDM, near syncopy, ischemic heart disease, R shoulder arthiritis ,carpal tunnel L wrist, L lower leg/ankle dvt in 1989, chronic lower leg/pedal edema, chronic lower extremity cellulitis, has had wounds under abdominal fold, neuropathy L hand, rhinitis- allergy shots q 2 weeks, lower GI bleed, colitis, anemia, gait dysfunction/debility, macular degeneration bilaterally. History of Any Multi-Drug Resistant Organisms: MRSA Date of last positivie culture/infection: 12/22/2013 MDRO Source:: Left Thigh Past Surgical History: Adenoidectomy, Appendectomy, Bladder Surgery, Breast Surgery, Ear Surgery, Heart Catheterization With Stent, Hysterectomy, Orthopedic Surgery, Tonsillectomy Additional Past Surgical History / Comment(s): bilateral eyelid surgery, infusaport lt subclavian placed 08/24/12, R subclavian infusaport inserted and removed, L shoulder total, R and L knee replacements with the L knee having been done twice, R and L hip replacements, irena cataract removed, L ear surgery- infection with sx, heart stents x2, embolectomy L ankle, breast lumpectomy-pt doesn't know which side or if cancerous, bladder suspension, bronchoscopy, R/L carpal tunnel releases. Past Anesthesia/Blood Transfusion Reactions: No Reported Reaction Additional Past Anesthesia/Blood Transfusion Reaction / Comment(s): Pt has had blood transfusion and no reaction. Date of Last Stent Placement:: 1993 Past Psychological History: No Psychological Hx Reported Additional Psychological History / Comment(s): PT CURRENTLY RESIDES AT [facility]. Pts mikael is her DPOA. Pt NEEDS ASSIT W/ADLS AND FROM BED TO CHAIR. Smoking Status: Former smoker Past Alcohol Use History: None Reported Additional Past Alcohol Use History / Comment(s): Pt started smoking at age 13 yrs 1949). Pt states she quit smoking in 1998. Past Drug Use History: None Reported - Past Family History Father Family Medical History: Coronary Artery Disease (CAD) Mother Family Medical History: Cancer Additional Family Medical History / Comment(s): colon Medications and Allergies Home Medications Medication Instructions Recorded Confirmed Type Diclofenac Sodium Gel [Voltaren 4 gm TOPICAL Q12H PRN 09/01/13 07/29/16 History Gel] Montelukast Sodium [Singulair] 10 mg PO HS@2100 09/01/13 07/29/16 History Phenytoin Sodium Extended 200 mg PO BID@0900,1700 09/01/13 07/29/16 History [Dilantin] sitaGLIPtin [Januvia] 100 mg PO DAILY@0900 09/01/13 07/29/16 History glipiZIDE [Glucotrol XL] 2.5 mg PO DAILY@1700 05/06/14 07/29/16 History Isosorbide Mononitrate ER [Imdur] 30 mg PO DAILY 02/26/15 07/29/16 History Gabapentin [Neurontin] 100 mg PO DAILY 12/21/15 07/29/16 History Rivaroxaban [Xarelto] 20 mg PO DAILY 12/21/15 07/29/16 History Tiotropium Rockwell [Spiriva 1 cap INHALATION RT-DAILY 12/21/15 07/29/16 History Respimat] Atorvastatin [Lipitor] 10 mg PO HS@209901/26/16 07/29/16 History Levothyroxine Sodium [Synthroid] 200 mcg PO DAILY@0600 01/26/16 07/29/16 History Losartan-Hctz 50-12.5 mg [Hyzaar 1 tab PO DAILY 01/26/16 07/29/16 History 50-12.5] Omeprazole 20 mg PO DAILY 01/26/16 07/29/16 History Oxybutynin Xl [Ditropan XL] 5 mg PO DAILY 01/26/16 07/29/16 History Hydrocodone/Acetaminophen [Emmet 1 tab PO Q6H PRN 05/19/16 07/29/16 History 10-325] Antifungal Power 1 applic TOPICAL BID 07/29/16 07/29/16 History Calcium Carbonate [Calcium] 600 mg PO DAILY 07/29/16 07/29/16 History Cetirizine HCl [Zyrtec] 10 mg PO HS@209907/29/16 07/29/16 History Clotrimazole/Betamethasone Dip 1 applic TOPICAL BID 07/29/16 07/29/16 History [Lotrisone Cream] Furosemide [Lasix] 40 mg PO BID@0600,1400 07/29/16 07/29/16 History Metoprolol Tartrate [Lopressor] 12.5 mg PO HS@209907/29/16 07/29/16 History Mylanta Susp 30 ml PO Q4H PRN 07/29/16 07/29/16 History Potassium Chloride ER [K-Dur 20] 20 meq PO TID 07/29/16 07/29/16 History risperiDONE [RisperDAL] 0.25 mg PO HS@2100 07/29/16 07/29/16 History Allergies Allergy/AdvReac Type Severity Reaction Status Date / Time iodine Allergy Itching Verified 07/29/16 11:04 nystatin Allergy Rash/Hives Verified 07/29/16 11:04 orange juice Allergy Unknown Verified 07/29/16 11:04 Penicillins Allergy Rash/Hives Verified 07/29/16 11:04 fluticasone propionate AdvReac Nausea & Verified 07/29/16 11:04 [From Advair Diskus] Vomiting methylprednisolone sodium AdvReac Chest Pain Verified 07/29/16 11:04 succinate [From Solu-Medrol] peas AdvReac Unknown Verified 07/29/16 20:02 salmeterol xinafoate AdvReac Nausea & Verified 07/29/16 11:04 [From Advair Diskus] Vomiting vitamin b12/liver shots Allergy Rash/Hives Uncoded 05/19/16 15:14 Physical Exam Vitals: Vital Signs Temp Pulse Pulse Pulse Resp BP BP 07/30/16 08:00 72 16 138/83 07/30/16 04:00 97.8 F 65 18 121/53 07/30/16 00:00 97.1 F L 70 70 18 121/58 07/29/16 20:00 72 72 18 126/58 07/29/16 19:29 98.3 F 81 20 152/77 07/29/16 18:49 98.7 F 84 18 143/64 Pulse Ox 07/30/16 08:00 97 07/30/16 04:00 97 07/30/16 00:00 94 L 07/29/16 20:00 98 07/29/16 19:29 95 07/29/16 18:49 98 Intake and Output 07/29/16 07/30/16 07/30/16 22:59 06:59 14:59 Intake Total 118 Output Total 200 Balance -200 118 Intake: Oral 118 Output: Urine 200 Other: Voiding Method Bedside Commode Bedside Commode Bedside Commode Incontinent Incontinent Incontinent # Voids 1 Weight 100 kg 101.8 kg PHYSICAL EXAMINATION: HEENT: [Head is atraumatic, normocephalic. Pupils equal, round. Neck is supple. There is no elevated jugular venous pressure.] HEART EXAMINATION: Heart S1 and S2 irregularly irregular a systolic murmur is heard. CHEST EXAMINATION: Lungs reveal decreased air exchange throughout, essentially clear. ABDOMEN: [ Soft, nontender. Bowel sounds are heard. No organomegaly noted]. EXTREMITIES:[ 2+ peripheral pulses with 1+ evidence of peripheral edema and no calf tenderness noted]. NEUROLOGIC [patient is awake, alert, mildly confused. . Results 07/29/16 15:22 07/29/16 15:22 Cardiac Enzymes 07/29/16 07/30/16 Range/Units 19:46 05:30 CK-MB (CK-2) 0.4 0.5 (0.0-2.4) ng/mL Troponin I <0.012 <0.012 (0.000-0.034) ng/mL Current Medications Generic Name Dose Route Start Last Admin Trade Name Freq PRN Reason Stop Dose Admin Hydrocodone Bitart/Acetaminophen 1 each 07/29/16 16:00 07/30/16 04:24 Emmet 10 PO 1 each Q6H PRN Administration Pain Al Hydroxide/Mg Hydroxide 30 ml 07/29/16 16:00 Maalox PO Q4H PRN GI Upset Albuterol/Ipratropium 3 ml 07/29/16 16:00 Duoneb 0.5 Mg-3 Mg/3 Ml Soln INHALATION RT-Q2H PRN Shortness Of Breath Or Wheezing Albuterol/Ipratropium 3 ml 07/29/16 20:00 07/30/16 12:26 Duoneb 0.5 Mg-3 Mg/3 Ml Soln INHALATION Not Given RT-QID [facility] Atorvastatin Calcium 10 mg 07/29/16 21:00 07/29/16 21:41 Lipitor PO 10 mg HS@2100 ASIF Administration Betamethasone/Clotrimazole 1 applic 07/29/16 21:00 07/30/16 10:09 Lotrisone TOPICAL 1 applic BID ASIF Administration Calcium Carbonate/Glycine 500 mg 07/30/16 09:00 07/30/16 10:08 Tums PO 500 mg DAILY ASIF Administration Diclofenac Sodium 4 gm 07/29/16 16:00 Voltaren Gel TOPICAL Q12H PRN Pain Furosemide 40 mg 07/30/16 06:00 07/30/16 05:23 Lasix PO 40 mg BID@0600,1400 ASIF Administration Gabapentin 100 mg 07/30/16 09:00 07/30/16 10:08 Neurontin PO 100 mg DAILY ASIF Administration Glipizide 2.5 mg 07/30/16 17:00 Glucotrol PO DAILY@1700 ASIF HCTZ/Losartan Potassium 1 each 07/30/16 09:00 07/30/16 10:08 Hyzaar 50-12.5 PO 1 each DAILY ASIF Administration Sodium Chloride 1,000 mls @ 60 mls/hr 07/29/16 16:45 07/29/16 21:34 Saline 0.9% IV 60 mls/hr .[id number] ASIF Administration Isosorbide Mononitrate 30 mg 07/30/16 09:00 07/30/16 10:09 Imdur PO 30 mg DAILY ASIF Administration Levothyroxine Sodium 200 mcg 07/30/16 06:00 07/30/16 05:23 Synthroid PO 200 mcg DAILY@0600 ASIF Administration Linagliptin 5 mg 07/30/16 09:00 07/30/16 10:09 Tradjenta PO 5 mg DAILY@0900 ASIF Administration Loratadine 10 mg 07/29/16 21:00 07/29/16 21:41 Claritin PO 10 mg HS@2100 ASIF Administration Metoprolol Tartrate 12.5 mg 07/29/16 21:00 07/29/16 21:42 Lopressor PO 12.5 mg HS@2100 ASIF Administration Montelukast Sodium 10 mg 07/29/16 21:00 07/29/16 21:42 Singulair PO 10 mg HS@2100 ASIF Administration Naloxone HCl 0.2 mg 07/29/16 16:37 Narcan IV Q2M PRN Opioid Reversal Nitroglycerin 0.4 mg 07/29/16 16:00 Nitrostat SUBLINGUAL Q5M PRN Chest Pain Oxybutynin Chloride 5 mg 07/30/16 09:00 07/30/16 10:09 Ditropan Xl PO 5 mg DAILY ASIF Administration Pantoprazole Sodium 40 mg 07/30/16 09:00 07/30/16 10:09 Protonix PO 40 mg DAILY ASIF Administration Phenytoin Sodium 200 mg 07/29/16 17:00 07/30/16 10:09 Dilantin PO 200 mg BID@0900,1700 ASIF Administration Potassium Chloride 20 meq 07/29/16 22:00 07/30/16 10:09 K-Dur 20 PO 20 meq TID ASIF Administration Risperidone 0.25 mg 07/29/16 21:00 07/29/16 21:42 Risperdal PO 0.25 mg HS@2100 ASIF Administration Rivaroxaban 20 mg 07/30/16 09:00 07/30/16 10:09 Xarelto PO 20 mg DAILY ASIF Administration Tiotropium Rockwell 1 puff 07/30/16 08:00 Spiriva INHALATION RT-DAILY ASIF Intake and Output 07/29/16 07/30/16 07/30/16 22:59 06:59 14:59 Intake Total 118 Output Total 200 Balance -200 118 Intake: Oral 118 Output: Urine 200 Other: Voiding Method Bedside Commode Bedside Commode Bedside Commode Incontinent Incontinent Incontinent # Voids 1 Weight 100 kg 101.8 kg EKG Interpretations (text) EKG shows atrial fibrillation with a right bundle branch block pattern. Assessment and Plan Plan: Assessment and plan #1 clogged MediPort #2 questionable symptoms of dizziness, lightheadedness and near syncope. Hemodynamically stable. No orthostatics documented. No significant tachycardia or bradycardia arrhythmias noted. #3 chronic persistent atrial fibrillation, on Xarelto for anticoagulation. #4 asthma #5 COPD #6 diabetes #7 hypertension #8 hyperlipidemia #9 history of seizures #10 CAD #11 dementia Plan From cardiology's perspective, we will recommend to continue the patient on her current medications. No clear-cut evidence of syncope at this time. Hemodynamically stable. We will follow this patient with you now on an as- needed basis only, please don't hesitate to call with any questions. DNP note has been reviewed, I agree with a documented findings and plan of care. Patient was seen and examined.
[2016-07-30] MEDS: SODIUM CHLORIDE 0.9% 1,000 ML IV SCH (14:10)
[2016-07-30 16:28] LABS: Glucose,Whole Blood 144 mg/dL (75-99)
[2016-07-30 21:31] LABS: Glucose,Whole Blood 133 mg/dL (75-99)
[2016-07-30] MEDS: METOPROLOL TARTRATE 12.5 MG TAB PO SCH (22:13)
[2016-07-30] MEDS: LORATADINE 10 MG TAB PO SCH (22:14)
[2016-07-30] MEDS: MONTELUKAST 10 MG TAB PO SCH (22:14)
[2016-07-30] MEDS: ATORVASTATIN 10 MG TAB PO SCH (22:14)
[2016-07-30] MEDS: risperiDONE 0.25 MG TAB PO SCH (22:14)
[2016-07-31] MEDS: FUROSEMIDE 40 MG TAB PO SCH ×2 (05:33→19:23)
[2016-07-31] MEDS: LEVOTHYROXINE 100 MCG TAB PO SCH (05:33)
[2016-07-31] MEDS: IPRATROPIUM-ALBUTEROL 3 ML NEB INHALATION SCH ×4 (07:21→19:49)
[2016-07-31] MEDS: LOSARTAN-HCTZ 50-12.5 MG 1 EACH TAB PO SCH (09:45)
[2016-07-31] MEDS: TIOTROPIUM 18 MCG/PUFF INHALER INHALATION SCH ×2 (09:45→23:13)
[2016-07-31] MEDS: PANTOPRAZOLE 40 MG TABLET PO SCH (09:46)
[2016-07-31] MEDS: CALCIUM CARBONATE 500 MG CHEWABLE PO SCH (09:46)
[2016-07-31] MEDS: OXYBUTYNIN XL 5 MG TAB.ER.24 PO SCH (09:48)
[2016-07-31] MEDS: GABAPENTIN 100 MG CAP PO SCH (09:48)
[2016-07-31] MEDS: CLOTRIMAZOLE/BETAMETH 1-0.05% CREAM 45 GM TUBE TOPICAL SCH ×2 (09:48→21:23)
[2016-07-31] MEDS: ISOSORBIDE MONONITRATE ER 30 MG TAB.ER.24H PO SCH (09:49)
[2016-07-31] MEDS: RIVAROXABAN 15 MG TAB PO SCH (09:50)
[2016-07-31] MEDS: PHENYTOIN SODIUM EXTENDED 100 MG CAP PO SCH ×2 (09:51→19:23)
[2016-07-31] MEDS: POTASSIUM CHLORIDE ER 20 MEQ TAB.ER PO SCH ×3 (09:51→21:24)
[2016-07-31] MEDS: LINAGLIPTIN 5 MG TABLET PO SCH (09:51)
--- NOTE | 2016-07-31 13:17 | P.PN ---
Subjective 80-year-old female being seen on rounds this morning currently is sitting up in a chair. Patient is denying any dizziness lightheadedness shortness of breath or chest pain. Patient's talkative pleasant and cooperative. Currently is sitting up in a chair taking a diet tolerating it reports no nausea vomiting denying abdominal pain Patient's initial presentation to the emergency room on the day of the admission with report of a poorly functioning MediPort. Patient was transferred from [facility]. Additionally patient had reported that she was not feeling well and had an episode of dizziness lightheadedness. Patient has had multiple admissions in the past for syncopal. Patient subsequently was admitted to the services of the attending with a cardiology and neurology consultation requested. In the emergency room patient did have a CAT scan of the brain showed no acute process. Patient stated the only reason why she was transferred from the [facility] facility was because the mediport was not functioning right. Additionally patient states while at the [facility] facility was sitting up in the dining room and extension remember she was in her room stating she may have passed out. Patient does have baseline dementia has episodes of poor medical recall Cardiology consultation obtained on the . Patient has known history of coronary artery disease with prior coronary stenting as well as chronic persistent atrial fibrillation with hypertension. Patient currently is denying chest pain. Echocardiogram was obtained which showed a normal left ventricular systolic function. Patient has had multiple admissions for syncopal episodes of all been negative workup in the past. Most recent admission to the hospital was in March 2016. At that time there were no acute findings worked up for syncopal cardiology indicated there was no clear-cut evidence of a syncopal at this time patient was hemodynamically stable they would see patient on an as- needed basis was no further cardiac workup indicated Patient's last admission was in March 2016 at that time the patient was treated for a UTI with positive urine culture stabilized and transferred back to the [facility] facility Additionally patient was seen by Dr. Gifty Edgar neurology neurological workup in progress currently is scheduled for an EEG to rule out any underlying seizure disorder as a cause of the syncopal episode. Patient does have a history of a seizure disorder. Patient has an underlying encephalopathy which could be chronic in nature. Objective - Vital Signs Vital signs: Vital Signs Temp 97.7 F 07/31/16 07:00 Pulse 68 07/31/16 07:00 Resp 20 07/31/16 07:00 BP 131/60 07/31/16 07:00 Pulse Ox 96 07/31/16 07:00 Intake & Output 07/30/16 07/31/16 07/31/16 18:59 06:59 18:59 Intake Total 898 480 Balance 898 480 Intake: IV 420 Sodium Chloride 0.9% 1, 420 000 ml @ 60 mls/hr IV . [id number] ASIF Rx#:[id number] Intake, IV Titration 480 Amount Sodium Chloride 0.9% 1, 480 000 ml @ 60 mls/hr IV . [id number] ASIF Rx#:[id number] Oral 478 Other: Voiding Method Bedside Commode Bedside Commode Incontinent Incontinent - Exam Physical exam 80-year-old female sitting up in a chair taking a lunch tray talkative denying dizziness lightheadedness chest pain or shortness of breath when questioning Oriented to person and place and event Lungs essentially clear adequate air movement Chest MediPort left anterior chest wall no redness around the site no hematoma IV fluid infusing no leaking noted Heart S1-S2 audible irregular denying chest pain Abdomen obese soft nontender denying abdominal pain no frequent stooling no reports of nausea vomiting Extremities chronic edema to the bilateral lower extremities nonpitting - Labs CBC & Chem 7: 07/29/16 15:22 07/29/16 15:22 Labs: Abnormal Lab Results - Last 24 Hours (Table) 07/30/16 07/30/16 Range/Units 16:20 21:25 POC Glucose (mg/dL) 144 H 133 H (75-99) mg/dL Assessment and Plan Plan: Impression Present on admission syncopal episode unclear etiology Chronic encephalopathy Chronic right bundle branch block Physical debility limited mobility uses a walker or wheelchair bedbound Morbid obesity BMI 45 Hypertension with hypertensive heart disease Chronic pain with narcotic dependency Persistent chronic atrial fibrillation controlled ventricular response on Xarelto Chronic edema to the bilateral lower extremities Present on admission generalized weakness decreased endurance suspect due to deconditioning with advanced age Present on admission malfunctioning Mediport Echocardiogram obtained on July 30 left ventricular systolic function normal EF between 50 and 60% History of a seizure disorder on Dilantin syncopal episode in August 2015 with a negative neurological workup Chronic hypoxic respiratory failure 2 L nasal cannula at night Known coronary artery disease with prior coronary stenting Type 2 diabetes Hypertension Plan Nursing to assess the patency of the Mediport for functionality Resume home meds as appropriate Dr. Gifty Edgar's workup in progress follow up on EEG Prepped for probable discharge the next 24 hours PT OT eval DVT and GI prophylaxis Fall precautions Noted cardiology signed off no further cardiac workup at this time The above dictated assessment and findings were discussed with dr donahue covering for Dr. Cotton Impression and the plan of care have been dictated as directed. Jalyn Cunha nurse practitioner acting as a scribe for dr donahue covering for Dr. Cotton
--- NOTE | 2016-07-31 18:55 | P.PN ---
Subjective This patient is a 80-year-old female who was admitted to hospital with episode of possible syncopal episode with confusion. Patient was also found to have a blocked port for which she was treated. Patient's neurological assessment revealed no significant changes to suggest acute stroke. She did undergo computed tomography scan of the brain which was negative for any acute changes. She subsequently was admitted to the hospital for full evaluation. She does have evidence of atrial fibrillation with bundle branch block. She is being followed by cardiology for this. Patient has a history of underlying seizure disorder. She is currently on Dilantin monotherapy. Recheck of her Dilantin levels have revealed her to be in the therapeutic range. Patient underwent a routine EEG today which was reviewed and is within normal limits for age. There was slight slowing of the EEG background. No epileptiform discharges were seen. Patient seems to be doing fairly well today. Patient is sitting up in the chair and having her dinner. She has had a good day today and has not had any further spells or syncopal episodes. Cardiology has evaluated her and her cardiac workup thus far has been negative. We did review the results of the EEG today with the patient. Her Dilantin blood levels also have come back in the therapeutic range. Her Dilantin level yesterday was noted to be 11.3. She is to be continued and maintained on her current dose of Dilantin. She is being evaluated for possible transfer back to [facility] once she is stabilized. Neurologically there is been no significant changes. She has had no further syncopal episodes. We will continue close neurological follow-up the patient during this admission. Objective - Vital Signs Vital signs: Vital Signs Temp 97.7 F 07/31/16 07:00 Pulse 68 07/31/16 07:00 Resp 20 07/31/16 07:00 BP 131/60 07/31/16 07:00 Pulse Ox 96 07/31/16 07:00 Intake & Output 07/30/16 07/31/16 07/31/16 18:59 06:59 18:59 Intake Total 898 480 Balance 898 480 Intake: IV 420 Sodium Chloride 0.9% 1, 420 000 ml @ 60 mls/hr IV . [id number] [facility] Rx#:[id number] Intake, IV Titration 480 Amount Sodium Chloride 0.9% 1, 480 000 ml @ 60 mls/hr IV . [id number] [facility] Rx#:[id number] Oral 478 Other: Voiding Method Bedside Commode Bedside Commode Incontinent Incontinent - Exam Physical examination: PHYSICAL EXAMINATION: Patient is resting comfortably in bed. VITAL SIGNS: Blood pressure is [131/60]. Heart rate is [68]. Respiration is [20] . Temperature is [97.7]. HEENT: Head is atraumatic, neck is supple, there were no carotid bruits. CHEST: Lungs are clear to auscultation and percussion. CARDIAC: S1, S2 normal rate and rhythm. There is no murmur. ABDOMEN: Soft and nontender. Bowel sounds are present. EXTREMITIES: There is no pedal edema. Peripheral pulses are present. Neurological examination: Patient's neurological examination is unchanged from initial assessment. She seems to be more awake and alert today and is following simple commands. Patient is examined today sitting up in her chair. She has had no change in her overall neurological status as compared to 2 days ago. Her neurological examination remains nonfocal. - Labs CBC & Chem 7: 07/29/16 15:22 07/29/16 15:22 Labs: Abnormal Lab Results - Last 24 Hours (Table) 07/30/16 Range/Units 21:25 POC Glucose (mg/dL) 133 H (75-99) mg/dL Assessment and Plan (1) Syncope Status: Acute Code(s): R55 - SYNCOPE AND COLLAPSE (2) Encephalopathy Status: Acute Code(s): G93.40 - ENCEPHALOPATHY, UNSPECIFIED (3) Atrial fibrillation Status: Acute Code(s): I48.91 - UNSPECIFIED ATRIAL FIBRILLATION (4) Right bundle branch block Status: Acute Code(s): I45.10 - UNSPECIFIED RIGHT BUNDLE-BRANCH BLOCK Plan: This patient is a pleasant 80-year-old female who was admitted to the hospital with malfunction of the MediPort as well as possible syncopal episode at [facility]. She was brought into the hospital and numbness undergone extensive evaluation. Computed tomography scan of the brain was negative for any evidence of acute stroke. She was able to complete a routine EEG today which was reviewed. Her EEG is within normal limits for her age with no evidence of any epileptiform discharges. She is on Dilantin for history of underlying seizure disorder. Her Dilantin level yesterday was therapeutic at 11.3. She is to be maintained on current dose of Dilantin. She appears to be much more alert today and is following all commands. She has been up and sitting in her chair most of the day. Would continue to increase activity as tolerates. She is being evaluated for possible discharge back to [facility] in the next 24-48 hours. We reviewed the results of the EEG and Dilantin blood levels today with the patient in detail. We will continue to follow her overall neurological status closely during this admission.
[2016-07-31] MEDS: SODIUM CHLORIDE 0.9% 1,000 ML IV SCH ×3 (19:23→19:44)
[2016-07-31] MEDS: ATORVASTATIN 10 MG TAB PO SCH (21:23)
[2016-07-31] MEDS: risperiDONE 0.25 MG TAB PO SCH (21:24)
[2016-07-31] MEDS: MONTELUKAST 10 MG TAB PO SCH (21:24)
[2016-07-31] MEDS: METOPROLOL TARTRATE 12.5 MG TAB PO SCH (21:24)
[2016-07-31] MEDS: LORATADINE 10 MG TAB PO SCH (21:24)
[2016-08-01] MEDS ORDERED: HYDROcodone/APAP 10-325MG 1 EACH TAB ONE (02:30)
[2016-08-01] MEDS: LEVOTHYROXINE 100 MCG TAB PO SCH (05:57)
[2016-08-01] MEDS: FUROSEMIDE 40 MG TAB PO SCH ×2 (05:57→14:40)
--- NOTE | 2016-08-01 07:08 | EEG ---
DATE OF SERVICE: 07/31/2016 INDICATIONS FOR EXAMINATION: This patient is an 80-year-old female being evaluated for syncope and collapse. The patient has history of underlying seizure disorder. AGE: 80Y EEG FINDINGS: A routine 21-channel, awake digital EEG recording was accomplished utilizing the 10 to 20 international system with bipolar and referential montages. The background activity in the most alert resting state consists of a low to medium amplitude, fairly well-developed and well-sustained 7 to 8 Hz activity over the posterior head regions. This posterior rhythm attenuates to eye opening. There is a small amount of low amplitude 18 to 20 Hz beta activity seen maximally over the anterior head regions. Muscle and movement artifact was observed on a few occasions during the tracing. Hyperventilation was not performed. Photic stimulation at flash frequencies of 2 to 30 Hz produced a good symmetrical occipital driving response. Towards the mid and latter portion of the tracing, the patient does drift into spontaneous drowsiness break. No epileptiform discharges were seen. IMPRESSION: This EEG is within normal limits for the patient's age. The EEG failed to reveal any focal, lateralized or epileptiform abnormalities. Clinical correlation is recommended.
[2016-08-01] MEDS: IPRATROPIUM-ALBUTEROL 3 ML NEB INHALATION SCH ×3 (07:25→15:02)
[2016-08-01] MEDS: CALCIUM CARBONATE 500 MG CHEWABLE PO SCH ×2 (08:12→08:23)
[2016-08-01] MEDS: CLOTRIMAZOLE/BETAMETH 1-0.05% CREAM 45 GM TUBE TOPICAL SCH (08:12)
[2016-08-01] MEDS: ISOSORBIDE MONONITRATE ER 30 MG TAB.ER.24H PO SCH ×2 (08:16→08:23)
[2016-08-01] MEDS: LINAGLIPTIN 5 MG TABLET PO SCH ×2 (08:16→08:23)
[2016-08-01] MEDS: GABAPENTIN 100 MG CAP PO SCH ×2 (08:16→08:23)
[2016-08-01] MEDS: LOSARTAN-HCTZ 50-12.5 MG 1 EACH TAB PO SCH ×2 (08:16→08:24)
[2016-08-01] MEDS: POTASSIUM CHLORIDE ER 20 MEQ TAB.ER PO SCH ×3 (08:17→14:40)
[2016-08-01] MEDS: PHENYTOIN SODIUM EXTENDED 100 MG CAP PO SCH (08:17)
[2016-08-01] MEDS: OXYBUTYNIN XL 5 MG TAB.ER.24 PO SCH ×2 (08:17→08:24)
[2016-08-01] MEDS: PANTOPRAZOLE 40 MG TABLET PO SCH ×2 (08:17→08:24)
[2016-08-01] MEDS: RIVAROXABAN 15 MG TAB PO SCH ×2 (08:17→08:24)
[2016-08-01 08:18] VITALS: BP 137/63; PULSE 79; RESP 20; TEMP 98.1
[2016-08-01 08:32] LABS: ALT 22 U/L (9-52); AST 15 U/L (14-36); Alkaline Phosphatase 134 U/L (38-126); Anion Gap 5 mmol/L; Blood Urea Nitrogen 10 mg/dL (7-17); Calcium 6.9 mg/dL (8.4-10.2); Carbon Dioxide 28 mmol/L (22-30); Chloride 108 mmol/L (98-107); Glucose 99 mg/dL (74-99); Non-African American GFR(MDRD) >60 (>60 ml/min/1.73 sqM); Potassium 3.3 mmol/L (3.5-5.1); Sodium 141 mmol/L (137-145); Total Bilirubin 0.4 mg/dL (0.2-1.3); Total Protein 5.6 g/dL (6.3-8.2)
--- NOTE | 2016-08-01 12:25 | P.DS ---
Providers Date of admission: 07/29/16 16:53 Expected date of discharge: 08/01/16 Attending physician: Margarito Cotton Consults: Dr. Gifty Edgar Primary care physician: [facility] Course: Patient's initial presentation to the emergency room on the day of the admission with report of a poorly functioning MediPort. In which nursing noted that there was no malfunctioning of the Mediport flushed adequately Patient was transferred from [facility]. Additionally patient had reported that she was not feeling well and had an episode of dizziness lightheadedness. Patient has had multiple admissions in the past for syncopal. Patient subsequently was admitted to the services of the attending with a cardiology and neurology consultation requested. In the emergency room patient did have a CAT scan of the brain showed no acute process. Patient stated the only reason why she was transferred from the [facility] facility was because the mediport was not functioning right. Additionally patient states while at the [facility] facility was sitting up in the dining room and extension remember she was in her room stating she may have passed out. Patient does have baseline dementia has episodes of poor medical recall Cardiology consultation obtained on the . Patient has known history of coronary artery disease with prior coronary stenting as well as chronic persistent atrial fibrillation with hypertension. Patient currently is denying chest pain. Echocardiogram was obtained which showed a normal left ventricular systolic function. Patient has had multiple admissions for syncopal episodes of all been negative workup in the past. Most recent admission to the hospital was in March 2016. At that time there were no acute findings worked up for syncopal cardiology indicated there was no clear-cut evidence of a syncopal at this time patient was hemodynamically stable they would see patient on an as- needed basis was no further cardiac workup indicated Patient's last admission was in March 2016 at that time the patient was treated for a UTI with positive urine culture stabilized and transferred back to the [facility] facility Additionally patient was seen by Dr. Gifty Edgar neurology neurological workup in progress currently is scheduled for an EEG to rule out any underlying seizure disorder as a cause of the syncopal episode. Patient does have a history of a seizure disorder. Patient has an underlying encephalopathy which could be chronic in nature. Patient's Dilantin level on the day of discharge was 8.3. Spoke with Dr. Edgar who recommended 500 mg IV Dilantin 1 and then continue on 200 mg twice a day dosing. Patient refused and stated she would pull the Mediport out would not take IV Dilantin. Stated when she got back to [facility] she would take her oral Dilantin and had not had a seizure in [address] Edgar about patient's refusing IV Dilantin he recommended that the patient could be transferred back to [facility] and resume home dose of Dilantin 200 twice a day dosing patient's potassium was replaced prior to discharge Impression discharge diagnosis Underlying encephalopathy Likely chronic in natureImpression Present on admission syncopal episode unclear etiology Chronic encephalopathy Chronic right bundle branch block Physical debility limited mobility uses a walker or wheelchair bedbound Morbid obesity BMI 45 Hypertension with hypertensive heart disease Chronic pain with narcotic dependency Persistent chronic atrial fibrillation controlled ventricular response on Xarelto Chronic edema to the bilateral lower extremities Present on admission generalized weakness decreased endurance suspect due to deconditioning with advanced age Present on admission malfunctioning Mediport Echocardiogram obtained on July 30 left ventricular systolic function normal EF between 50 and 60% History of a seizure disorder on Dilantin syncopal episode in August 2015 with a negative neurological workup Chronic hypoxic respiratory failure 2 L nasal cannula at night Known coronary artery disease with prior coronary stenting Type 2 diabetes Hypertension Electrolyte abnormality hypokalemia The above dictated assessment and findings were discussed with dr donahue covering for Dr. Cotton Impression and the plan of care have been dictated as directed. Jalyn Cunha nurse practitioner acting as a scribe for dr godfrey bojorquez for Dr. Cotton Patient Condition at Discharge: Stable Plan - Discharge Summary New Discharge Prescriptions: HYDROcodone/APAP 10-325MG [[place] 10-325] 1 each PO Q6H PRN #30 tab PRN Reason: Pain Discharge Medication List Diclofenac Sodium Gel [Voltaren Gel] 4 gm TOPICAL Q12H PRN 09/01/13 [History] Montelukast Sodium [Singulair] 10 mg PO HS@2100 09/01/13 [History] Phenytoin Sodium Extended [Dilantin] 200 mg PO BID@0900,1700 09/01/13 [History] sitaGLIPtin [Januvia] 100 mg PO DAILY@0900 09/01/13 [History] glipiZIDE [Glucotrol XL] 2.5 mg PO DAILY@1700 05/06/14 [History] Isosorbide Mononitrate ER [Imdur] 30 mg PO DAILY 02/26/15 [History] Nitroglycerin Sl Tabs [Nitrostat] 0.4 mg SUBLINGUAL Q5M PRN #0 tab 04/02/15 [Rx] Gabapentin [Neurontin] 100 mg PO DAILY 12/21/15 [History] Rivaroxaban [Xarelto] 20 mg PO DAILY 12/21/15 [History] Tiotropium [place] [Spiriva Respimat] 1 cap INHALATION RT-DAILY 12/21/15 [ History] Atorvastatin [Lipitor] 10 mg PO HS@209901/26/16 [History] Levothyroxine Sodium [Synthroid] 200 mcg PO DAILY@0600 01/26/16 [History] Losartan-Hctz 50-12.5 mg [Hyzaar 50-12.5] 1 tab PO DAILY 01/26/16 [History] Omeprazole 20 mg PO DAILY 01/26/16 [History] Oxybutynin Xl [Ditropan XL] 5 mg PO DAILY 01/26/16 [History] HYDROcodone/APAP 10-325MG [[place] 10-325] 1 tab PO BID PRN #60 tab 03/26/16 [Rx] Ipratropium-Albuterol Nebulize [Duoneb 0.5 mg-3 mg/3 ml Soln] 3 ml INHALATION RT -Q2H PRN #0 ampul.neb 03/26/16 [Rx] Ipratropium-Albuterol Nebulize [Duoneb 0.5 mg-3 mg/3 ml Soln] 3 ml INHALATION RT -QID ampul.neb 03/26/16 [Rx] Hydrocodone/Acetaminophen [[place] 10-325] 1 tab PO Q6H PRN 05/19/16 [History] Antifungal Power 1 applic TOPICAL BID 07/29/16 [History] Calcium Carbonate [Calcium] 600 mg PO DAILY 07/29/16 [History] Cetirizine HCl [Zyrtec] 10 mg PO HS@209907/29/16 [History] Clotrimazole/Betamethasone Dip [Lotrisone Cream] 1 applic TOPICAL BID 07/29/16 [ History] Furosemide [Lasix] 40 mg PO BID@0600,1400 07/29/16 [History] Metoprolol Tartrate [Lopressor] 12.5 mg PO HS@209907/29/16 [History] Mylanta Susp 30 ml PO Q4H PRN 07/29/16 [History] Potassium Chloride ER [K-Dur 20] 20 meq PO TID 07/29/16 [History] risperiDONE [RisperDAL] 0.25 mg PO HS@209907/29/16 [History] HYDROcodone/APAP 10-325MG [[place] 10-325] 1 each PO Q6H PRN #30 tab 08/01/16 [Rx] Follow up Appointment(s)/Referral(s): Margarito Cotton MD [Primary Care Provider] - 1-2 days Discharge Disposition: TRANSFER TO SNF/ECF
[2016-08-01 12:30] LABS: Hemoglobin A1C 7.1 % (4.2-6.1)
[2016-08-01] MEDS: SODIUM CHLORIDE 0.9% 1,000 ML IV SCH (12:34)
== END 2016-08-01 17:40 | DRG 312 ==
LOC: EC 10:55 → 6SEL 16:53 → 5MS5E 07-30 19:11
PROVIDERS: ADMIT Family Medicine; ATTEND Family Medicine
DX: R55 Syncope and collapse (principal); G93.41 Metabolic encephalopathy; J96.11 Chronic respiratory failure with hypoxia; I48.1 Persistent atrial fibrillation; F11.20 Opioid dependence, uncomplicated; E11.40 Type 2 diabetes mellitus with diabetic neuropathy, unspecified; I11.0 Hypertensive heart disease with heart failure; I50.9 Heart failure, unspecified; F03.90 Unspecified dementia, unspecified severity, without behavioral disturbance, psychotic disturbance, mood disturbance, and anxiety; Z68.42 Body mass index [BMI] 45.0-49.9, adult; E66.01 Morbid (severe) obesity due to excess calories; J44.9 Chronic obstructive pulmonary disease, unspecified; D64.9 Anemia, unspecified; G40.909 Epilepsy, unspecified, not intractable, without status epilepticus; I45.10 Unspecified right bundle-branch block; E03.9 Hypothyroidism, unspecified; E78.5 Hyperlipidemia, unspecified; E87.6 Hypokalemia; H35.30 Unspecified macular degeneration; H91.90 Unspecified hearing loss, unspecified ear; I25.10 Atherosclerotic heart disease of native coronary artery without angina pectoris; I89.0 Lymphedema, not elsewhere classified; J31.0 Chronic rhinitis; J45.909 Unspecified asthma, uncomplicated; K21.9 Gastro-esophageal reflux disease without esophagitis; G89.29 Other chronic pain; M19.91 Primary osteoarthritis, unspecified site; R26.9 Unspecified abnormalities of gait and mobility; Z99.81 Dependence on supplemental oxygen; Z99.3 Dependence on wheelchair; Z98.41 Cataract extraction status, right eye; Z98.42 Cataract extraction status, left eye; Z95.5 Presence of coronary angioplasty implant and graft; Z87.891 Personal history of nicotine dependence; Z85.118 Personal history of other malignant neoplasm of bronchus and lung; Z86.718 Personal history of other venous thrombosis and embolism; Z79.01 Long term (current) use of anticoagulants; Z79.84 Long term (current) use of oral hypoglycemic drugs; Z79.899 Other long term (current) drug therapy; Z82.49 Family history of ischemic heart disease and other diseases of the circulatory system; Z16.24 Resistance to multiple antibiotics; Z86.14 Personal history of Methicillin resistant Staphylococcus aureus infection
CPT/HCPCS: 36415; 70450; 71020; 80053; 80185; 81001; 82550; 82553; 83036; 83880; 84484; 85025; 85610; 85730; 93005; 93306; 95819; 96361; 96374; 99285

== ENCOUNTER 2017-11-17 07:40 | Emergency (ER) | payer MEDICARE, BC, OTHER ==
[2017-11-17 07:51] VITALS: RESP 18
[2017-11-17 08:40] LABS: Appearance,Urine Cloudy (Clear); Bacteria,Urine Rare /hpf; Bilirubin,Urine Negative (Negative); Blood,Urine Negative (Negative); Color,Urine Colorless; Glucose,Urine (UA) Negative (Negative); Ketones,Urine Negative (Negative); Leukocyte Esterase,Urine Large (Negative); Mucus,Urine Rare /hpf; Nitrite,Urine Negative (Negative); PH, Urine 6.5 (5.0-8.0); Protein,Urine Negative (Negative); RBC,Urine 5 /hpf (0-5); Specific Gravity,Urine 1.006 (1.001-1.035); Squamous Epithelial Cell,Urine 1 /hpf (0-4); Urobilinogen,Urine <2.0 mg/dL (<2.0); WBC,Urine 79 /hpf (0-5)
--- NOTE | 2017-11-17 08:52 | ED ---
General Adult HPI - General Source: EMS, RN notes reviewed Mode of arrival: EMS Limitations: no limitations <Rafal Forde - Last Filed: 11/17/17 09:58> <Indra Smith - Last Filed: 11/17/17 16:43> - General Chief complaint: Fall Stated complaint: chronic pain all over Time Seen by Provider: 11/17/17 08:07 - History of Present Illness Initial comments: Patient's a 82-year-old female presenting to the emergency room today by EMS from her [facility] for slip and fall that occurred this morning. Patient states she was on her way to the bathroom using a walker with assistance and she began to slip and fall down. It was with her unable to hold her up and helped lowered to the ground. She does admit some pain to the left side of the ribs. Patient denies any head injury or loss consciousness. She denies any other injuries from the fall. Patient does admit to chronic pain in the shoulders and knees. Patient denies any recent fever, chills, shortness of breath, chest pain, nausea or vomiting, numbness or tingling, dysuria or hematuria, headaches or visual changes, or any other complaints. (Rafal Forde ) - Related Data Home Medications Medication Instructions Recorded Confirmed Diclofenac Sodium Gel [Voltaren 2 gm TOPICAL Q12H PRN 09/01/13 11/17/17 Gel] Montelukast Sodium [Singulair] 10 mg PO HS@2100 09/01/13 11/17/17 Phenytoin Sodium Extended 200 mg PO BID@0900,1700 09/01/13 11/17/17 [Dilantin] glipiZIDE [Glucotrol XL] 2.5 mg PO DAILY@1300 05/06/14 11/17/17 Isosorbide Mononitrate ER [Imdur] 30 mg PO DAILY 02/26/15 11/17/17 Gabapentin [Neurontin] 100 mg PO DAILY 12/21/15 11/17/17 Rivaroxaban [Xarelto] 20 mg PO DAILY 12/21/15 11/17/17 Atorvastatin [Lipitor] 10 mg PO HS@2100 01/26/16 11/17/17 Levothyroxine Sodium [Synthroid] 200 mcg PO DAILY@0600 01/26/16 11/17/17 Losartan-Hctz 50-12.5 mg [Hyzaar 1 tab PO DAILY 01/26/16 11/17/17 50-12.5] Omeprazole 20 mg PO DAILY 01/26/16 11/17/17 Hydrocodone/Acetaminophen [[place] 1 tab PO BID 05/19/16 11/17/17 10-325] Antifungal Power 1 applic TOPICAL BID 07/29/16 11/17/17 Calcium Carbonate [Calcium] 600 mg PO DAILY 07/29/16 11/17/17 Cetirizine HCl [Zyrtec] 10 mg PO HS@2100 07/29/16 11/17/17 Furosemide [Lasix] 40 mg PO DAILY@1300 07/29/16 11/17/17 Metoprolol Tartrate [Lopressor] 12.5 mg PO HS@2100 07/29/16 11/17/17 Potassium Chloride ER [K-Dur 20] 40 meq PO BID 07/29/16 11/17/17 risperiDONE [RisperDAL] 0.25 mg PO HS@2100 07/29/16 11/17/17 Acetaminophen Tab [Tylenol Tab] 650 mg PO Q4H PRN 11/17/17 11/17/17 Artificial Tears-Hypromellose 1 drops BOTH EYES Q12H PRN 11/17/17 11/17/17 [Artificial Tear Drops] Clobetasol Propionate [Temovate 1 applic TOPICAL BID 11/17/17 11/17/17 0.05% Cream] Fluticasone/Vilanterol [Breo 1 puff INHALATION RT-DAILY@59911/17/17 11/17/17 Ellipta 100-25 Mcg Inhaler] Furosemide [Lasix] 80 mg PO DAILY@59911/17/17 11/17/17 HYDROcodone/APAP 10-325MG [[place] 1 tab PO Q6H PRN 11/17/17 11/17/17 10-325] Lidocaine Aerosol 1 applic TOPICAL DIRECTED 11/17/17 11/17/17 Linagliptin [Tradjenta] 5 mg PO DAILY 11/17/17 11/17/17 Memantine [Namenda] 5 mg PO DAILY 11/17/17 11/17/17 Mylanta 30 ml PO Q4H PRN 11/17/17 11/17/17 Oxybutynin ER [Ditropan Xl] 10 mg PO DAILY 11/17/17 11/17/17 Tiotropium 18 Mcg/Puff [Spiriva] 1 cap INHALATION RT-DAILY 11/17/17 11/17/17 Previous Rx's Medication Instructions Recorded Nitroglycerin Sl Tabs [Nitrostat] 0.4 mg SUBLINGUAL Q5M PRN #0 tab 04/02/15 Doxycycline Hyclate [Vibramycin] 100 mg PO BID #20 cap 11/17/17 Nitrofurantoin Monohyd/M-Cryst 100 mg PO Q12HR #14 cap 11/17/17 [Macrobid] Allergies Allergy/AdvReac Type Severity Reaction Status Date / Time iodine Allergy Itching Verified 11/17/17 08:18 nystatin Allergy Rash/Hives Verified 11/17/17 08:18 orange juice Allergy Unknown Verified 11/17/17 08:18 Penicillins Allergy Rash/Hives Verified 11/17/17 08:18 fluticasone propionate AdvReac Nausea & Verified 11/17/17 08:18 [From Advair Diskus] Vomiting methylprednisolone sodium AdvReac Chest Pain Verified 11/17/17 08:18 succinate [From Solu-Medrol] peas AdvReac Unknown Verified 11/17/17 08:18 salmeterol xinafoate AdvReac Nausea & Verified 11/17/17 08:18 [From Advair Diskus] Vomiting vitamin b12/liver shots Allergy Rash/Hives Uncoded 11/17/17 07:52 Review of Systems ROS Other: All systems not noted in ROS Statement are negative. <Rafal Forde - Last Filed: 11/17/17 09:58> ROS Other: All systems not noted in ROS Statement are negative. <Indra Smith - Last Filed: 11/17/17 16:43> ROS Statement: Those systems with pertinent positive or pertinent negative responses have been documented in the HPI. Past Medical History Past Medical History: Atrial Fibrillation, Asthma, Coronary Artery Disease (CAD) , Cancer, Chest Pain / Angina, Heart Failure, COPD, Dementia, Diabetes Mellitus , Deep Vein Thrombosis (DVT), Eye Disorder, GERD/Reflux, GI Bleed, Hearing Disorder / Deafness, Hyperlipidemia, Hypertension, Osteoarthritis (OA), Pneumonia, Seizure Disorder, Thyroid Disorder, Vascular Disorder Additional Past Medical History / Comment(s): Recent UTI with completion of ABX , cellulitis belateral lower extremities, exacerbation of asthma, and weakness, lung cancer(uncertain which side) tx with chemotherapy, Uses home O2 at 2L/NC at nite, last seizure 2007, very [place] L ear, NIDDM, near syncopy, ischemic heart disease, R shoulder arthiritis ,carpal tunnel L wrist, L lower leg/ankle dvt in 1989, chronic lower leg/pedal edema, chronic lower extremity cellulitis, has had wounds under abdominal fold, neuropathy L hand, rhinitis- allergy shots q 2 weeks, lower GI bleed, colitis, anemia, gait dysfunction/debility, macular degeneration bilaterally. History of Any Multi-Drug Resistant Organisms: MRSA Date of last positivie culture/infection: 12/22/2013 MDRO Source:: Left Thigh Past Surgical History: Adenoidectomy, Appendectomy, Bladder Surgery, Breast Surgery, Ear Surgery, Heart Catheterization With Stent, Hysterectomy, Orthopedic Surgery, Tonsillectomy Additional Past Surgical History / Comment(s): bilateral eyelid surgery, infusaport lt subclavian placed 08/24/12, R subclavian infusaport inserted and removed, L shoulder total, R and L knee replacements with the L knee having been done twice, R and L hip replacements, irena cataract removed, L ear surgery- infection with sx, heart stents x2, embolectomy L ankle, breast lumpectomy-pt doesn't know which side or if cancerous, bladder suspension, bronchoscopy, R/L carpal tunnel releases. Past Anesthesia/Blood Transfusion Reactions: No Reported Reaction Additional Past Anesthesia/Blood Transfusion Reaction / Comment(s): Pt has had blood transfusion and no reaction. Date of Last Stent Placement:: 1993 Past Psychological History: No Psychological Hx Reported Smoking Status: Former smoker Past Alcohol Use History: None Reported Past Drug Use History: None Reported - Past Family History Father Family Medical History: Coronary Artery Disease (CAD) Mother Family Medical History: Cancer Additional Family Medical History / Comment(s): colon <Rafal Forde - Last Filed: 11/17/17 09:58> General Exam Limitations: no limitations <Rafal Forde - Last Filed: 11/17/17 09:58> <Indra Smith - Last Filed: 11/17/17 16:43> - General Exam Comments Initial Comments: General: The patient is awake and alert, in no distress, and does not appear acutely ill. Eye: Pupils are equal, round and reactive to light, extra-ocular movements are intact. No nystagmus. There is normal conjunctiva bilaterally. No signs of icterus. Ears, nose, mouth and throat: There are moist mucous membranes and no oral lesions. Neck: The neck is supple, there is no tenderness or JVD. Cardiovascular: There is a regular rate and rhythm. No murmur, rub or gallop is appreciated. Respiratory: Lungs are clear to auscultation, respirations are non-labored, breath sounds are equal. No wheezes, stridor, rales, or rhonchi. Gastrointestinal: Soft, non-distended, non-tender abdomen without masses or organomegaly noted. There is no rebound or guarding present. No CVA tenderness. Musculoskeletal: Normal ROM. Tender over the left lateral ribs. Strength 5/ 5. Sensation intact. Radial and pedal pulses equal bilaterally 2+. Neurological: A&O x 3. CN II-XII intact, There are no obvious motor or sensory deficits. Coordination appears grossly intact. Speech is normal. Skin: Skin is warm and dry and no rashes or lesions are noted. Psychiatric: Cooperative, appropriate mood & affect, normal judgment. (Rafal Forde) Vital Signs 11/17/17 11/17/17 07:42 11:20 Temperature 97.9 F 97.2 F L Pulse Rate 78 66 Respiratory 18 18 Rate Blood Pressure 140/77 127/74 O2 Sat by Pulse 97 97 Oximetry Medical Decision Making <Rafal Forde - Last Filed: 11/17/17 09:58> <Indra Smith - Last Filed: 11/17/17 16:43> - Medical Decision Making Patient's urinalysis was sent by nursing staff due to cloudy appearance. Patient does admit some increased frequency. Urinalysis does show 79 white cells. Patient's chest x-ray shows no acute rib fracture but does show possible infiltrate versus atelectasis on the right midlung. Patient has refused any blood work. Emergency room. Patient adamant that she has rolling veins does not want to be poked. Does not want be admitted to the hospital. EKG shows A. fib at 77 bpm. Patient will be treated with antibiotics to cover both urine and possible infiltrate placed on Macrobid and doxycycline. Patient was seen here the emergency room by physician Dr. Smith (Rafal Forde) Resident/PA attestation: I, Dr. Indra Smith, personally saw and examined the patient. I have reviewed and agree with the resident/PA findings, including all diagnostic interpretations and treatment plans as written unless otherwise stated. I was present for the shipley portions of any procedures performed and inclusive time noted for any critical care statement. Patient is an 82-year-old female presents after patient attempted to stand up however she is at baseline week. The staff saw this happening and attempted to catch her. She was too heavy and was gently laid onto the ground. She was sent here for evaluation. Workup was negative. Patient had signs of urinary tract infection and possible infiltrate that could represent pneumonia. Patient reports being a symptomatically from respiratory and urinary perspective. However, given age there is suspicion that this may represent a symptomatically infection. Discussed the patient that we would like to obtain basic labs looking for electrolyte derangement. Patient adamantly refused any sort of blood draw. Patient is at a [facility]. Patient prescription for antibiotics. She is told to seek medical attention with any worsening symptoms. Patient understands the risk of leaving and not allowing us to do blood draw. (Indra Smith) - Lab Data Lab Results 11/17/17 Range/Units 08:25 Urine Color Colorless Urine Appearance Cloudy H (Clear) Urine pH 6.5 (5.0-8.0) Ur Specific [place] 1.006 (1.001-1.035) Urine Protein Negative (Negative) Urine Glucose (UA) Negative (Negative) Urine Ketones Negative (Negative) Urine Blood Negative (Negative) Urine Nitrite Negative (Negative) Urine Bilirubin Negative (Negative) Urine Urobilinogen <2.0 (<2.0) mg/dL Ur Leukocyte Esterase Large H (Negative) Urine RBC 5 (0-5) /hpf Urine WBC 79 H (0-5) /hpf Ur Squamous Epith Cells 1 (0-4) /hpf Urine Bacteria Rare H (None) /hpf Urine Mucus Rare H (None) /hpf Disposition Is patient prescribed a controlled substance at d/c from ED?: No Time of Disposition: 10:03 <Rafal Forde - Last Filed: 11/17/17 09:58> <Indra Smith - Last Filed: 11/17/17 16:43> Clinical Impression: UTI (urinary tract infection), CAP (community acquired pneumonia) Disposition: HOME SELF-CARE Condition: Good Instructions: Urinary Tract Infection in Women (ED) Additional Instructions: Please use medication as discussed. Please follow-up with family doctor in the next 2 days. Please return to emergency room if the symptoms increase or worsen or for any other concerns. Prescriptions: Doxycycline Hyclate [Vibramycin] 100 mg PO BID #20 cap Nitrofurantoin Monohyd/M-Cryst [Macrobid] 100 mg PO Q12HR #14 cap Referrals: Margarito Cotton MD [Primary Care Provider] - 1-2 days Addendum entered and electronically signed by Rafal Forde PA-C 11/17/17 10: 03: EKG performed at 0942 shows A. fib at 77 bpm. QRS 154. QT/QTc 448/506. No acute changes.
--- NOTE | 2017-11-17 08:58 | XR ---
EXAMINATION TYPE: XR chest 2V DATE OF EXAM: 11/17/2017 COMPARISON: 07/29/2016 HISTORY: 82-year-old female with fall and shortness of breath TECHNIQUE: AP and lateral views FINDINGS: Heart mildly enlarged. Left anterior chest wall injection port with subclavian catheter and tip at th e cavoatrial junction. Diffuse interstitial prominence is unchanged. Patchy peripheral right midlung opacity is increased and may be part related to overlying soft tissue density. Surgical clips project ing along the lower left hemithorax. Partially visualized left shoulder arthroplasty. No significant pleural effusion. Kyphotic deformity of the thoracic spine with moderate to advanced degenerative dis c disease. IMPRESSION: 1. Cardiomegaly and interstitial changes which appear in part chronic. Correlate to exclude mild pulm onary vascular congestion. 2. Increased patchy opacity right midlung could represent atelectasis or developing infiltrate.
[2017-11-17 11:22] VITALS: BP 127/74; PULSE 66; TEMP 97.2
== END 2017-11-17 11:21 | disposition home or self-care (01) ==
LOC: EC 07:40
DX: N39.0 Urinary tract infection, site not specified (principal); J18.9 Pneumonia, unspecified organism; R07.81 Pleurodynia; M25.511 Pain in right shoulder; M25.512 Pain in left shoulder; M25.562 Pain in left knee; M25.561 Pain in right knee; I48.91 Unspecified atrial fibrillation; J44.9 Chronic obstructive pulmonary disease, unspecified; F03.90 Unspecified dementia, unspecified severity, without behavioral disturbance, psychotic disturbance, mood disturbance, and anxiety; I25.10 Atherosclerotic heart disease of native coronary artery without angina pectoris; I11.0 Hypertensive heart disease with heart failure; I50.9 Heart failure, unspecified; E11.40 Type 2 diabetes mellitus with diabetic neuropathy, unspecified; K21.9 Gastro-esophageal reflux disease without esophagitis; E78.5 Hyperlipidemia, unspecified; M19.90 Unspecified osteoarthritis, unspecified site; G40.909 Epilepsy, unspecified, not intractable, without status epilepticus; E07.9 Disorder of thyroid, unspecified; Z86.718 Personal history of other venous thrombosis and embolism; Z92.21 Personal history of antineoplastic chemotherapy; Z86.14 Personal history of Methicillin resistant Staphylococcus aureus infection; Z95.5 Presence of coronary angioplasty implant and graft; Z96.612 Presence of left artificial shoulder joint; Z96.653 Presence of artificial knee joint, bilateral; Z96.643 Presence of artificial hip joint, bilateral; Z87.891 Personal history of nicotine dependence; Z85.118 Personal history of other malignant neoplasm of bronchus and lung; Z99.81 Dependence on supplemental oxygen; Z79.84 Long term (current) use of oral hypoglycemic drugs; Z79.01 Long term (current) use of anticoagulants; Z79.891 Long term (current) use of opiate analgesic; Z79.52 Long term (current) use of systemic steroids; Z79.51 Long term (current) use of inhaled steroids; Z79.899 Other long term (current) drug therapy; Z91.048 Other nonmedicinal substance allergy status; Z88.1 Allergy status to other antibiotic agents; Z91.018 Allergy to other foods; Z88.0 Allergy status to penicillin; Z88.8 Allergy status to other drugs, medicaments and biological substances; W01.0XXA Fall on same level from slipping, tripping and stumbling without subsequent striking against object, initial encounter; Z53.29 Procedure and treatment not carried out because of patient's decision for other reasons
CPT/HCPCS: 71046; 81001; 87086; 93005; 99284

== ENCOUNTER 2017-12-02 18:04 | Emergency (ER) | payer MEDICARE, BC, OTHER ==
[2017-12-02] MEDS ORDERED: SODIUM CHLORIDE 0.9% 1,000 ML IV STA (18:14)
--- NOTE | 2017-12-02 18:14 | ED ---
General Adult HPI - General Stated complaint: Refusing to eat Time Seen by Provider: 12/02/17 18:14 Source: RN notes reviewed, old records reviewed - History of Present Illness Initial comments: This is an 82-year-old female the ER for evaluation. Patient's brought in the ER as ascended from [facility] for evaluation regarding refusing the refusing to take medications. Patient's poor strain, family is feeling at bedside and states patient is acting appropriately. Patient herself denies any complaints is [employer] currently acting for food. Patient states she feels fine like to be discharged home - Related Data Home Medications Medication Instructions Recorded Confirmed Diclofenac Sodium Gel [Voltaren 2 gm TOPICAL Q12H PRN 09/01/13 12/02/17 Gel] Montelukast Sodium [Singulair] 10 mg PO HS@2100 09/01/13 12/02/17 Phenytoin Sodium Extended 200 mg PO BID@0900,1700 09/01/13 12/02/17 [Dilantin] glipiZIDE [Glucotrol XL] 2.5 mg PO DAILY@1300 05/06/14 12/02/17 Isosorbide Mononitrate ER [Imdur] 30 mg PO DAILY 02/26/15 12/02/17 Gabapentin [Neurontin] 100 mg PO DAILY 12/21/15 12/02/17 Rivaroxaban [Xarelto] 20 mg PO DAILY 12/21/15 12/02/17 Atorvastatin [Lipitor] 10 mg PO HS@2100 01/26/16 12/02/17 Levothyroxine Sodium [Synthroid] 200 mcg PO DAILY@0600 01/26/16 12/02/17 Losartan-Hctz 50-12.5 mg [Hyzaar 1 tab PO DAILY 01/26/16 12/02/17 50-12.5] Omeprazole 20 mg PO DAILY 01/26/16 12/02/17 Hydrocodone/Acetaminophen [[place] 1 tab PO BID 05/19/16 12/02/17 10-325] Antifungal Power 1 applic TOPICAL BID 07/29/16 12/02/17 Calcium Carbonate [Calcium] 600 mg PO DAILY 07/29/16 12/02/17 Cetirizine HCl [Zyrtec] 10 mg PO HS@2100 07/29/16 12/02/17 Furosemide [Lasix] 40 mg PO DAILY@1300 07/29/16 12/02/17 Metoprolol Tartrate [Lopressor] 12.5 mg PO HS@2100 07/29/16 12/02/17 Potassium Chloride ER [K-Dur 20] 40 meq PO BID 07/29/16 12/02/17 risperiDONE [RisperDAL] 0.25 mg PO HS@2100 07/29/16 12/02/17 Acetaminophen Tab [Tylenol Tab] 650 mg PO Q4H PRN 11/17/17 12/02/17 Artificial Tears-Hypromellose 1 drops BOTH EYES Q12H PRN 11/17/17 12/02/17 [Artificial Tear Drops] Clobetasol Propionate [Temovate 1 applic TOPICAL BID 11/17/17 12/02/17 0.05% Cream] Fluticasone/Vilanterol [Breo 1 puff INHALATION RT-DAILY@0611/17/17 12/02/17 Ellipta 100-25 Mcg Inhaler] Furosemide [Lasix] 80 mg PO DAILY@0600 11/17/17 12/02/17 HYDROcodone/APAP 10-325MG [[place] 1 tab PO Q6H PRN 11/17/17 12/02/17 10-325] Lidocaine Aerosol 1 applic TOPICAL DIRECTED 11/17/17 12/02/17 Linagliptin [Tradjenta] 5 mg PO DAILY 11/17/17 12/02/17 Memantine [Namenda] 5 mg PO DAILY 11/17/17 12/02/17 Mylanta 30 ml PO Q4H PRN 11/17/17 12/02/17 Oxybutynin ER [Ditropan Xl] 10 mg PO DAILY 11/17/17 12/02/17 Tiotropium 18 Mcg/Puff [Spiriva] 1 cap INHALATION RT-DAILY 11/17/17 12/02/17 Ondansetron [Zofran] 4 mg PO Q6H PRN 12/02/17 12/02/17 Previous Rx's Medication Instructions Recorded Nitroglycerin Sl Tabs [Nitrostat] 0.4 mg SUBLINGUAL Q5M PRN #0 tab 04/02/15 Allergies Allergy/AdvReac Type Severity Reaction Status Date / Time Iodinated Contrast- Oral and Allergy Unknown Verified 12/02/17 18:19 IV Dye iodine Allergy Itching Verified 12/02/17 18:19 nystatin Allergy Rash/Hives Verified 12/02/17 18:19 orange juice Allergy Unknown Verified 12/02/17 18:19 Penicillins Allergy Rash/Hives Verified 12/02/17 18:19 fluticasone propionate AdvReac Nausea & Verified 12/02/17 18:19 [From Advair Diskus] Vomiting methylprednisolone sodium AdvReac Chest Pain Verified 12/02/17 18:19 succinate [From Solu-Medrol] peas AdvReac Unknown Verified 12/02/17 18:19 salmeterol xinafoate AdvReac Nausea & Verified 12/02/17 18:19 [From Advair Diskus] Vomiting vitamin b12/liver shots Allergy Rash/Hives Uncoded 12/02/17 18:18 Review of Systems ROS Statement: Those systems with pertinent positive or pertinent negative responses have been documented in the HPI. ROS Other: All systems not noted in ROS Statement are negative. Past Medical History Past Medical History: Atrial Fibrillation, Asthma, Coronary Artery Disease (CAD) , Cancer, Chest Pain / Angina, Heart Failure, COPD, Dementia, Diabetes Mellitus , Deep Vein Thrombosis (DVT), Eye Disorder, GERD/Reflux, GI Bleed, Hearing Disorder / Deafness, Hyperlipidemia, Hypertension, Osteoarthritis (OA), Pneumonia, Seizure Disorder, Thyroid Disorder, Vascular Disorder Additional Past Medical History / Comment(s): Recent UTI with completion of ABX , cellulitis belateral lower extremities, exacerbation of asthma, and weakness, lung cancer(uncertain which side) tx with chemotherapy, Uses home O2 at 2L/NC at nite, last seizure 2007, very [place] L ear, NIDDM, near syncopy, ischemic heart disease, R shoulder arthiritis ,carpal tunnel L wrist, L lower leg/ankle dvt in 1989, chronic lower leg/pedal edema, chronic lower extremity cellulitis, has had wounds under abdominal fold, neuropathy L hand, rhinitis- allergy shots q 2 weeks, lower GI bleed, colitis, anemia, gait dysfunction/debility, macular degeneration bilaterally. History of Any Multi-Drug Resistant Organisms: MRSA Date of last positivie culture/infection: 12/22/2013 MDRO Source:: Left Thigh Past Surgical History: Adenoidectomy, Appendectomy, Bladder Surgery, Breast Surgery, Ear Surgery, Heart Catheterization With Stent, Hysterectomy, Orthopedic Surgery, Tonsillectomy Additional Past Surgical History / Comment(s): bilateral eyelid surgery, infusaport lt subclavian placed 08/24/12, R subclavian infusaport inserted and removed, L shoulder total, R and L knee replacements with the L knee having been done twice, R and L hip replacements, irena cataract removed, L ear surgery- infection with sx, heart stents x2, embolectomy L ankle, breast lumpectomy-pt doesn't know which side or if cancerous, bladder suspension, bronchoscopy, R/L carpal tunnel releases. Past Anesthesia/Blood Transfusion Reactions: No Reported Reaction Additional Past Anesthesia/Blood Transfusion Reaction / Comment(s): Pt has had blood transfusion and no reaction. Date of Last Stent Placement:: 1993 Past Psychological History: No Psychological Hx Reported Smoking Status: Former smoker Past Alcohol Use History: None Reported Past Drug Use History: None Reported - Past Family History Father Family Medical History: Coronary Artery Disease (CAD) Mother Family Medical History: Cancer Additional Family Medical History / Comment(s): colon General Exam General appearance: alert, in no apparent distress Head exam: Present: atraumatic, normocephalic, normal inspection Eye exam: Present: normal appearance, PERRL, EOMI. Absent: scleral icterus, conjunctival injection, periorbital swelling ENT exam: Present: normal exam, mucous membranes moist Neck exam: Present: normal inspection. Absent: tenderness, meningismus, lymphadenopathy Respiratory exam: Present: normal lung sounds bilaterally. Absent: respiratory distress, wheezes, rales, rhonchi, stridor Cardiovascular Exam: Present: regular rate, normal rhythm, normal heart sounds. Absent: systolic murmur, diastolic murmur, rubs, gallop, clicks GI/Abdominal exam: Present: soft, normal bowel sounds. Absent: distended, tenderness, guarding, rebound, rigid Extremities exam: Present: normal inspection, full ROM, normal capillary refill. Absent: tenderness, pedal edema, joint swelling, calf tenderness Back exam: Present: normal inspection Neurological exam: Present: alert, oriented X3, CN II-XII intact Psychiatric exam: Present: normal affect, normal mood Skin exam: Present: warm, dry, intact, normal color. Absent: rash Course Vital Signs 12/02/17 12/02/17 12/02/17 18:19 20:24 21:33 Temperature 97.9 F 97.8 F Pulse Rate 74 83 85 Respiratory 20 18 18 Rate Blood Pressure 140/64 124/57 142/66 O2 Sat by Pulse 96 94 L 95 Oximetry - Reevaluation(s) Reevaluation #1: Family at length to continue to maintain patient is at baseline, again patient is eating here in the emergency room EKG Findings - EKG Comments: EKG Findings:: EKG shows A. fib rate of 80, QRS 158, QTc 509 Medical Decision Making - Medical Decision Making 82 female the ER for evaluation, patient presenting with no complaints. Patient has multiple evaluations here in the emergency room with no findings. Patient's eating appropriately and will be discharged home - Lab Data Result diagrams: 12/02/17 19:05 12/02/17 19:05 Lab Results 12/02/17 12/02/17 12/02/17 Range/Units 19:05 19:05 19:05 WBC 14.5 H (3.8-10.6) k/uL RBC 4.52 (3.80-5.40) m/uL Hgb 12.5 (11.4-16.0) gm/dL Hct 39.5 (34.0-46.0) % MCV 87.3 (80.0-100.0) fL MCH 27.7 (25.0-35.0) pg MCHC 31.8 (31.0-37.0) g/dL RDW 16.3 H (11.5-15.5) % Plt Count 293 (150-450) k/uL Neutrophils % 70 % Lymphocytes % 19 % Monocytes % 7 % Eosinophils % 1 % Basophils % 0 % Neutrophils # 10.2 H (1.3-7.7) k/uL Lymphocytes # 2.8 (1.0-4.8) k/uL Monocytes # 1.0 (0-1.0) k/uL Eosinophils # 0.2 (0-0.7) k/uL Basophils # 0.1 (0-0.2) k/uL Anisocytosis Slight PT (9.0-12.0) sec INR (<1.2) APTT (22.0-30.0) sec Sodium 133 L (137-145) mmol/L Potassium 3.2 L (3.5-5.1) mmol/L Chloride 89 L (98-107) mmol/L Carbon Dioxide 33 H (22-30) mmol/L Anion Gap 11 mmol/L BUN 26 H (7-17) mg/dL Creatinine 0.80 (0.52-1.04) mg/dL Est GFR (CKD-EPI)AfAm 79 (>60 ml/min/1.73 sqM) Est GFR (CKD-EPI)NonAf 68 (>60 ml/min/1.73 sqM) Glucose 115 H (74-99) mg/dL Plasma Lactic Acid Vj (0.7-2.0) mmol/L Calcium 8.0 L (8.4-10.2) mg/dL Phosphorus 2.9 (2.5-4.5) mg/dL Magnesium 1.5 L (1.6-2.3) mg/dL Total Bilirubin 0.8 (0.2-1.3) mg/dL AST 36 (14-36) U/L ALT 25 (9-52) U/L Alkaline Phosphatase 221 H (38-126) U/L Total Creatine Kinase 37 (30-135) U/L CK-MB (CK-2) 1.0 (0.0-2.4) ng/mL CK-MB (CK-2) Rel Index 2.7 Troponin I 0.036 H* (0.000-0.034) ng/mL Total Protein 7.6 (6.3-8.2) g/dL Albumin 3.2 L (3.5-5.0) g/dL Urine Color Urine Appearance (Clear) Urine pH (5.0-8.0) Ur Specific [place] (1.001-1.035) Urine Protein (Negative) Urine Glucose (UA) (Negative) Urine Ketones (Negative) Urine Blood (Negative) Urine Nitrite (Negative) Urine Bilirubin (Negative) Urine Urobilinogen (<2.0) mg/dL Ur Leukocyte Esterase (Negative) Urine RBC (0-5) /hpf Urine WBC (0-5) /hpf Ur Squamous Epith Cells (0-4) /hpf 12/02/17 12/02/17 12/02/17 Range/Units 19:05 19:05 19:05 WBC (3.8-10.6) k/uL RBC (3.80-5.40) m/uL Hgb (11.4-16.0) gm/dL Hct (34.0-46.0) % MCV (80.0-100.0) fL MCH (25.0-35.0) pg MCHC (31.0-37.0) g/dL RDW (11.5-15.5) % Plt Count (150-450) k/uL Neutrophils % % Lymphocytes % % Monocytes % % Eosinophils % % Basophils % % Neutrophils # (1.3-7.7) k/uL Lymphocytes # (1.0-4.8) k/uL Monocytes # (0-1.0) k/uL Eosinophils # (0-0.7) k/uL Basophils # (0-0.2) k/uL Anisocytosis PT 12.2 H (9.0-12.0) sec INR 1.3 H (<1.2) APTT 26.1 (22.0-30.0) sec Sodium (137-145) mmol/L Potassium (3.5-5.1) mmol/L Chloride (98-107) mmol/L Carbon Dioxide (22-30) mmol/L Anion Gap mmol/L BUN (7-17) mg/dL Creatinine (0.52-1.04) mg/dL Est GFR (CKD-EPI)AfAm (>60 ml/min/1.73 sqM) Est GFR (CKD-EPI)NonAf (>60 ml/min/1.73 sqM) Glucose (74-99) mg/dL Plasma Lactic Acid Vj 1.7 (0.7-2.0) mmol/L Calcium (8.4-10.2) mg/dL Phosphorus (2.5-4.5) mg/dL Magnesium (1.6-2.3) mg/dL Total Bilirubin (0.2-1.3) mg/dL AST (14-36) U/L ALT (9-52) U/L Alkaline Phosphatase (38-126) U/L Total Creatine Kinase (30-135) U/L CK-MB (CK-2) (0.0-2.4) ng/mL CK-MB (CK-2) Rel Index Troponin I (0.000-0.034) ng/mL Total Protein (6.3-8.2) g/dL Albumin (3.5-5.0) g/dL Urine Color Yellow Urine Appearance Clear (Clear) Urine pH 6.0 (5.0-8.0) Ur Specific [place] 1.013 (1.001-1.035) Urine Protein 1+ H (Negative) Urine Glucose (UA) Negative (Negative) Urine Ketones Negative (Negative) Urine Blood Trace H (Negative) Urine Nitrite Negative (Negative) Urine Bilirubin Negative (Negative) Urine Urobilinogen <2.0 (<2.0) mg/dL Ur Leukocyte Esterase Trace H (Negative) Urine RBC <1 (0-5) /hpf Urine WBC 2 (0-5) /hpf Ur Squamous Epith Cells 1 (0-4) /hpf - Radiology Data Radiology results: report reviewed (CT brain chest x-ray are negative for acute disease), image reviewed Disposition Clinical Impression: Weakness Disposition: HOME SELF-CARE Condition: Good Instructions: Weakness (ED) Is patient prescribed a controlled substance at d/c from ED?: No Referrals: Margarito Cotton MD [Primary Care Provider] - 1-2 days
[2017-12-02 19:25] LABS: Anisocytosis Slight; Basophils # (A) 0.1 k/uL (0-0.2); Basophils % (A) 0 %; Eosinophils # (A) 0.2 k/uL (0-0.7); Eosinophils % (A) 1 %; HCT 39.5 % (34.0-46.0); HGB 12.5 gm/dL (11.4-16.0); Lymphocytes # (A) 2.8 k/uL (1.0-4.8); Lymphocytes % (A) 19 %; MCH 27.7 pg (25.0-35.0); MCHC 31.8 g/dL (31.0-37.0); MCV 87.3 fL (80.0-100.0); Mean Platelet Volume 7.1; Monocytes % (A) 7 %; Neutrophils # (A) 10.2 k/uL (1.3-7.7); Neutrophils % (A) 70 %; Platelet Count 293 k/uL (150-450); RBC 4.52 m/uL (3.80-5.40); RDW 16.3 % (11.5-15.5); WBC 14.5 k/uL (3.8-10.6)
[2017-12-02 19:33] LABS: Albumin 3.2 g/dL (3.5-5.0); Magnesium 1.5 mg/dL (1.6-2.3); Phosphorus 2.9 mg/dL (2.5-4.5); Potassium 3.2 mmol/L (3.5-5.1); Total Bilirubin 0.8 mg/dL (0.2-1.3); Total Protein 7.6 g/dL (6.3-8.2)
[2017-12-02 19:43] LABS: Appearance,Urine Clear (Clear); Bilirubin,Urine Negative (Negative); Blood,Urine Trace (Negative); Color,Urine Yellow; Glucose,Urine (UA) Negative (Negative); Ketones,Urine Negative (Negative); Leukocyte Esterase,Urine Trace (Negative); Nitrite,Urine Negative (Negative); Protein,Urine 1+ (Negative); RBC,Urine <1 /hpf (0-5); Specific Gravity,Urine 1.013 (1.001-1.035); Squamous Epithelial Cell,Urine 1 /hpf (0-4); Urobilinogen,Urine <2.0 mg/dL (<2.0); WBC,Urine 2 /hpf (0-5)
--- NOTE | 2017-12-02 20:00 | CT ---
EXAMINATION TYPE: CT brain wo con DATE OF EXAM: 12/02/2017 COMPARISON: 07/29/2016 HISTORY: Altered mental status CT DLP: 803.1 mGycm Automated exposure control for dose reduction was used. FINDINGS: There is cerebral cortical atrophy. There is no mass effect nor midline shift. There is no sign of in tracranial hemorrhage. There is mucosal thickening in the left side of the sphenoid sinus. There is w khushbu matter hypodensity. IMPRESSION: CEREBRAL ATROPHY AND CHRONIC SMALL VESSEL ISCHEMIA. NO ACUTE INTRACRANIAL ABNORMALITY. NO CHANGE. 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
--- NOTE | 2017-12-02 20:02 | XR ---
EXAMINATION TYPE: XR chest 2V DATE OF EXAM: 12/02/2017 COMPARISON: 11/17/2017 HISTORY: Atrial fibrillation TECHNIQUE: Frontal and lateral views of the chest are obtained. FINDINGS: Heart is enlarged. Thoracic aorta is atheromatous. There is coarsening of interstitial pul monary markings. There is left side central venous catheter with the tip in the superior vena cava. T here is left shoulder prosthesis. IMPRESSION: Cardiomegaly. Pulmonary fibrotic changes. No gross heart failure. No change.
[2017-12-02 20:10] LABS: INR 1.3 (<1.2); Partial Thromboplastin Time 26.1 sec (22.0-30.0); Prothrombin Time 12.2 sec (9.0-12.0)
[2017-12-02 20:21] LABS: Troponin I 0.036 ng/mL (0.000-0.034)
[2017-12-02 20:25] VITALS: RESP 18
[2017-12-02] MEDS ORDERED: POTASSIUM BICARBONATE/CIT AC 20 MEQ TABLET.EFF PO ONE (21:30)
[2017-12-02] MEDS ORDERED: MAGNESIUM OXIDE 400 MG TAB PO STA (21:30)
[2017-12-02 21:35] VITALS: BP 142/66; PULSE 85; TEMP 97.8
== END 2017-12-02 22:03 | disposition home or self-care (01) ==
LOC: EC 18:04
DX: R53.1 Weakness (principal); R63.8 Other symptoms and signs concerning food and fluid intake; I48.91 Unspecified atrial fibrillation; J44.9 Chronic obstructive pulmonary disease, unspecified; I25.10 Atherosclerotic heart disease of native coronary artery without angina pectoris; I11.0 Hypertensive heart disease with heart failure; I50.9 Heart failure, unspecified; F03.90 Unspecified dementia, unspecified severity, without behavioral disturbance, psychotic disturbance, mood disturbance, and anxiety; Z86.718 Personal history of other venous thrombosis and embolism; E11.40 Type 2 diabetes mellitus with diabetic neuropathy, unspecified; K21.9 Gastro-esophageal reflux disease without esophagitis; E78.5 Hyperlipidemia, unspecified; M19.90 Unspecified osteoarthritis, unspecified site; G40.909 Epilepsy, unspecified, not intractable, without status epilepticus; E07.9 Disorder of thyroid, unspecified; Z85.118 Personal history of other malignant neoplasm of bronchus and lung; Z92.21 Personal history of antineoplastic chemotherapy; Z86.14 Personal history of Methicillin resistant Staphylococcus aureus infection; Z95.5 Presence of coronary angioplasty implant and graft; Z96.612 Presence of left artificial shoulder joint; Z96.653 Presence of artificial knee joint, bilateral; Z96.643 Presence of artificial hip joint, bilateral; Z87.891 Personal history of nicotine dependence; Z79.84 Long term (current) use of oral hypoglycemic drugs; Z79.01 Long term (current) use of anticoagulants; Z79.891 Long term (current) use of opiate analgesic; Z79.52 Long term (current) use of systemic steroids; Z79.51 Long term (current) use of inhaled steroids; Z79.899 Other long term (current) drug therapy; Z91.041 Radiographic dye allergy status; Z91.048 Other nonmedicinal substance allergy status; Z88.1 Allergy status to other antibiotic agents; Z91.018 Allergy to other foods; Z88.0 Allergy status to penicillin; Z88.8 Allergy status to other drugs, medicaments and biological substances
CPT/HCPCS: 36415; 70450; 71046; 80053; 81001; 82550; 82553; 83605; 83735; 84100; 84484; 85025; 85610; 85730; 87040; 87086; 93005; 96360; 96361; 99285

== ENCOUNTER 2018-02-18 12:35 | Emergency (ER) | payer MEDICARE, BC, OTHER ==
[2018-02-18] MEDS ORDERED: SODIUM CHLORIDE 0.9% 1,000 ML IV STA (12:44)
--- NOTE | 2018-02-18 12:53 | ED ---
General Adult HPI - General Stated complaint: Eval/From [facility] Source: EMS Mode of arrival: EMS Limitations: no limitations - History of Present Illness Initial comments: Dictation was produced using [employer] dictation software. please excuse any grammatical, word or spelling errors. Chief Complaint: 82-year-old female [facility] by EMS [facility] for 30 minutes of stroke like symptoms. History of Present Illness: 82-year-old female was brought in by EMS from the jail pressure like symptoms. Patient was seen at the jail at approximately 12 PM when she began having right-sided neuro deficits and right facial weakness. Patient was also altered. EMS was called rapidly. EMS checked her sugar which was found to be 160. According to nurse who received report from EMS patient had some right-sided facial droop and right- sided weakness. Patient unable to provide HPI this time secondary to mental status. Unable to obtain ROS at this time. - Related Data Home Medications Medication Instructions Recorded Confirmed Diclofenac Sodium Gel [Voltaren 2 gm TOPICAL Q12H PRN 09/01/13 02/18/18 Gel] Montelukast Sodium [Singulair] 10 mg PO HS@2100 09/01/13 02/18/18 Phenytoin Sodium Extended 200 mg PO BID 09/01/13 02/18/18 [Dilantin] glipiZIDE [Glucotrol XL] 2.5 mg PO DAILY@1300 05/06/14 02/18/18 Isosorbide Mononitrate ER [Imdur] 30 mg PO DAILY 02/26/15 02/18/18 Gabapentin [Neurontin] 100 mg PO DAILY 12/21/15 02/18/18 Rivaroxaban [Xarelto] 20 mg PO DAILY 12/21/15 02/18/18 Atorvastatin [Lipitor] 10 mg PO HS@2100 01/26/16 02/18/18 Levothyroxine Sodium [Synthroid] 200 mcg PO DAILY@0600 01/26/16 02/18/18 Losartan-Hctz 50-12.5 mg [Hyzaar 1 tab PO DAILY 01/26/16 02/18/18 50-12.5] Omeprazole 20 mg PO DAILY 01/26/16 02/18/18 Hydrocodone/Acetaminophen [[place] 1 tab PO BID 05/19/16 02/18/18 10-325] Antifungal Power 1 applic TOPICAL BID 04/11/17 11/01/18 Calcium Carbonate [Calcium] 600 mg PO DAILY 07/29/16 02/18/18 Cetirizine HCl [Zyrtec] 10 mg PO HS@209907/29/16 02/18/18 Furosemide [Lasix] 40 mg PO DAILY@1300 07/29/16 02/18/18 Metoprolol Tartrate [Lopressor] 12.5 mg PO HS@209907/29/16 02/18/18 Potassium Chloride ER [K-Dur 20] 40 meq PO BID 07/29/16 02/18/18 risperiDONE [RisperDAL] 0.25 mg PO HS@209907/29/16 02/18/18 Acetaminophen Tab [Tylenol Tab] 650 mg PO Q4H PRN 11/17/17 02/18/18 Fluticasone/Vilanterol [Breo 1 puff INHALATION RT-DAILY@59911/17/17 02/18/18 Ellipta 100-25 Mcg Inhaler] Furosemide [Lasix] 80 mg PO DAILY@0611/17/17 02/18/18 HYDROcodone/APAP 10-325MG [[place] 1 tab PO Q6H PRN 11/17/17 02/18/18 10-325] Lidocaine Aerosol 1 applic TOPICAL DIRECTED 11/17/17 02/18/18 Oxybutynin ER [Ditropan Xl] 10 mg PO DAILY 11/17/17 02/18/18 Tiotropium 18 Mcg/Puff [Spiriva] 1 cap INHALATION RT-DAILY 11/17/17 02/18/18 Ondansetron [Zofran] 4 mg PO Q6H PRN 12/02/17 02/18/18 Linagliptin [Tradjenta] 5 mg PO DAILY 02/18/18 02/18/18 Memantine [Namenda] 10 mg PO DAILY 02/18/18 02/18/18 Triad Hydrophilic Wound Paste 1 applic TOPICAL BID 02/18/18 02/18/18 Previous Rx's Medication Instructions Recorded Nitroglycerin Sl Tabs [Nitrostat] 0.4 mg SUBLINGUAL Q5M PRN #0 tab 04/02/15 Allergies Allergy/AdvReac Type Severity Reaction Status Date / Time Iodinated Contrast- Oral and Allergy Unknown Verified 02/18/18 13:34 IV Dye iodine Allergy Itching Verified 02/18/18 13:34 nystatin Allergy Rash/Hives Verified 02/18/18 13:34 orange juice Allergy Unknown Verified 02/18/18 13:34 Penicillins Allergy Rash/Hives Verified 02/18/18 13:34 fluticasone propionate AdvReac Nausea & Verified 02/18/18 13:34 [From Advair Diskus] Vomiting methylprednisolone sodium AdvReac Chest Pain Verified 02/18/18 13:34 succinate [From Solu-Medrol] peas AdvReac Unknown Verified 02/18/18 13:34 salmeterol xinafoate AdvReac Nausea & Verified 02/18/18 13:34 [From Advair Diskus] Vomiting vitamin b12/liver shots Allergy Rash/Hives Uncoded 12/02/17 18:18 Review of Systems ROS Statement: Those systems with pertinent positive or pertinent negative responses have been documented in the HPI. ROS Other: All systems not noted in ROS Statement are negative. Past Medical History Past Medical History: Atrial Fibrillation, Asthma, Coronary Artery Disease (CAD) , Cancer, Chest Pain / Angina, Heart Failure, COPD, Dementia, Diabetes Mellitus , Deep Vein Thrombosis (DVT), Eye Disorder, GERD/Reflux, GI Bleed, Hearing Disorder / Deafness, Hyperlipidemia, Hypertension, Osteoarthritis (OA), Pneumonia, Seizure Disorder, Thyroid Disorder, Vascular Disorder Additional Past Medical History / Comment(s): Recent UTI with completion of ABX , cellulitis belateral lower extremities, exacerbation of asthma, and weakness, lung cancer(uncertain which side) tx with chemotherapy, Uses home O2 at 2L/NC at nite, last seizure 2007, very [place] L ear, NIDDM, near syncopy, ischemic heart disease, R shoulder arthiritis ,carpal tunnel L wrist, L lower leg/ankle dvt in 1989, chronic lower leg/pedal edema, chronic lower extremity cellulitis, has had wounds under abdominal fold, neuropathy L hand, rhinitis- allergy shots q 2 weeks, lower GI bleed, colitis, anemia, gait dysfunction/debility, macular degeneration bilaterally. History of Any Multi-Drug Resistant Organisms: MRSA Date of last positivie culture/infection: 12/22/2013 MDRO Source:: Left Thigh Past Surgical History: Adenoidectomy, Appendectomy, Bladder Surgery, Breast Surgery, Ear Surgery, Heart Catheterization With Stent, Hysterectomy, Orthopedic Surgery, Tonsillectomy Additional Past Surgical History / Comment(s): bilateral eyelid surgery, infusaport lt subclavian placed 08/24/12, R subclavian infusaport inserted and removed, L shoulder total, R and L knee replacements with the L knee having been done twice, R and L hip replacements, irena cataract removed, L ear surgery- infection with sx, heart stents x2, embolectomy L ankle, breast lumpectomy-pt doesn't know which side or if cancerous, bladder suspension, bronchoscopy, R/L carpal tunnel releases. Past Anesthesia/Blood Transfusion Reactions: No Reported Reaction Additional Past Anesthesia/Blood Transfusion Reaction / Comment(s): Pt has had blood transfusion and no reaction. Date of Last Stent Placement:: 1993 Past Psychological History: No Psychological Hx Reported Smoking Status: Former smoker Past Alcohol Use History: None Reported Past Drug Use History: None Reported - Past Family History Father Family Medical History: Coronary Artery Disease (CAD) Mother Family Medical History: Cancer Additional Family Medical History / Comment(s): colon General Exam - General Exam Comments Initial Comments: PHYSICAL EXAM: General Impression: We dressed pain, eyes open, unable to provide HPI. HEENT: Normocephalic atraumatic, extra-ocular movements intact, wet mucous membranes, isolated right eyebrow vertical nystagmus Cardiovascular: Heart regular rate and rhythm, S1&S2 audible, no murmurs, rubs or gallops Chest: Lungs clear to auscultation bilaterally, no rhonchi, no wheeze, no rales Abdomen: Bowel sounds present, abdomen soft, non-tender, non-distended, no organomegaly, obese Musculoskeletal: Pulses present and equal in all extremities, no peripheral edema Motor: Moves all extremities to noxious stimuli Neurological: Unresponsive, does not follow commands, unable to speak, pupils equal round reactive to light. Rest pain all extremities. Skin: Intact with no visualized rashes Limitations: no limitations Course Vital Signs 02/18/18 02/18/18 02/18/18 12:35 12:45 13:00 Temperature 97.1 F L Pulse Rate 68 71 61 Respiratory 18 18 16 Rate Blood Pressure 144/79 147/80 142/82 O2 Sat by Pulse 98 98 98 Oximetry 02/18/18 02/18/18 02/18/18 13:15 13:30 13:45 Temperature Pulse Rate 72 68 61 Respiratory 16 17 18 Rate Blood Pressure 113/57 131/81 142/87 O2 Sat by Pulse 98 97 98 Oximetry Medical Decision Making - Medical Decision Making ED course: 82-year-old female brought in from jail for stroke like symptoms. Patient unable to provide HPI at this time secondary to mental status. Vital signs upon arrival are within normal limits. Patient's clinical presentation suspicious for massive left-sided stroke. Symptoms allegedly started 30 minutes prior to arrival. NIH upon initial evaluation was greater than 25. Blood sugar was paged. Given age, clinical presentation and high NIH stroke scale patient cannot a candidate for TPA. Patient does have DO NOT RESUSCITATE orders in her chart from the jail. Chart review from the jail was performed. Patient does have multiple psychiatric diseases, hypothyroidism. Chart review shows that patient is on Xarelto. According to EMS and gave reports a nurse patient is usually alert and oriented and has meaningful conversation. She allegedly is an motor at baseline as well.Laboratory evaluation obtained. Patient has a hemoglobin of 9.9. Which appears to be around patient's normal baseline. Rest of CBC unremarkable. Coag panel is unremarkable. INR 1.3. Metabolic panel shows glucose 127. Rest of labs are benign. Plain film of the chest shows cardiomegaly with pulmonary venous hypertension. Computed tomography scan of the brain shows subacute infarct within the right watershed region. CT angioma was obtained however there is difficulty reading the secondary to severe motion artifact. Discussed patient case with Dr. Dow who was struck neurologist conveyor system operator recommends patient be transferred to [facility] for neuro and vascular. Patient be transferred. EKG interpretation: Ventricular rate 60. No SD prolongation, no QTC prolongation , no ST or T-wave changes noted. Atrial fibrillation, QRS 152, QTC 496. Overall, this EKG is unremarkable - Lab Data Result diagrams: 02/18/18 12:45 02/18/18 13:19 Lab Results 02/18/18 02/18/18 02/18/18 Range/Units 12:45 12:45 13:03 WBC 7.3 (3.8-10.6) k/uL RBC 3.71 L (3.80-5.40) m/uL Hgb 9.9 L (11.4-16.0) gm/dL Hct 32.1 L (34.0-46.0) % MCV 86.5 (80.0-100.0) fL MCH 26.6 (25.0-35.0) pg MCHC 30.7 L (31.0-37.0) g/dL RDW 15.6 H (11.5-15.5) % Plt Count 344 (150-450) k/uL Neutrophils % 52 % Lymphocytes % 34 % Monocytes % 8 % Eosinophils % 2 % Basophils % 1 % Neutrophils # 3.8 (1.3-7.7) k/uL Lymphocytes # 2.5 (1.0-4.8) k/uL Monocytes # 0.6 (0-1.0) k/uL Eosinophils # 0.1 (0-0.7) k/uL Basophils # 0.0 (0-0.2) k/uL Hypochromasia Marked PT 12.5 H (9.0-12.0) sec INR 1.3 H (<1.2) APTT 28.5 (22.0-30.0) sec Sodium (137-145) mmol/L Potassium (3.5-5.1) mmol/L Chloride (98-107) mmol/L Carbon Dioxide (22-30) mmol/L Anion Gap mmol/L BUN (7-17) mg/dL Creatinine (0.52-1.04) mg/dL Est GFR (CKD-EPI)AfAm (>60 ml/min/1.73 sqM) Est GFR (CKD-EPI)NonAf (>60 ml/min/1.73 sqM) Glucose (74-99) mg/dL Calcium (8.4-10.2) mg/dL Total Bilirubin (0.2-1.3) mg/dL AST (14-36) U/L ALT (9-52) U/L Alkaline Phosphatase (38-126) U/L Total Creatine Kinase 59 (30-135) U/L CK-MB (CK-2) 1.0 (0.0-2.4) ng/mL CK-MB (CK-2) Rel Index 1.7 Troponin I <0.012 (0.000-0.034) ng/mL Total Protein (6.3-8.2) g/dL Albumin (3.5-5.0) g/dL 02/18/18 Range/Units 13:19 WBC (3.8-10.6) k/uL RBC (3.80-5.40) m/uL Hgb (11.4-16.0) gm/dL Hct (34.0-46.0) % MCV (80.0-100.0) fL MCH (25.0-35.0) pg MCHC (31.0-37.0) g/dL RDW (11.5-15.5) % Plt Count (150-450) k/uL Neutrophils % % Lymphocytes % % Monocytes % % Eosinophils % % Basophils % % Neutrophils # (1.3-7.7) k/uL Lymphocytes # (1.0-4.8) k/uL Monocytes # (0-1.0) k/uL Eosinophils # (0-0.7) k/uL Basophils # (0-0.2) k/uL Hypochromasia PT (9.0-12.0) sec INR (<1.2) APTT (22.0-30.0) sec Sodium 138 (137-145) mmol/L Potassium 4.3 (3.5-5.1) mmol/L Chloride 101 (98-107) mmol/L Carbon Dioxide 27 (22-30) mmol/L Anion Gap 10 mmol/L BUN 36 H (7-17) mg/dL Creatinine 0.84 (0.52-1.04) mg/dL Est GFR (CKD-EPI)AfAm 74 (>60 ml/min/1.73 sqM) Est GFR (CKD-EPI)NonAf 64 (>60 ml/min/1.73 sqM) Glucose 127 H (74-99) mg/dL Calcium 8.9 (8.4-10.2) mg/dL Total Bilirubin 0.4 (0.2-1.3) mg/dL AST 36 (14-36) U/L ALT 22 (9-52) U/L Alkaline Phosphatase 184 H (38-126) U/L Total Creatine Kinase (30-135) U/L CK-MB (CK-2) (0.0-2.4) ng/mL CK-MB (CK-2) Rel Index Troponin I (0.000-0.034) ng/mL Total Protein 7.7 (6.3-8.2) g/dL Albumin 3.5 (3.5-5.0) g/dL Disposition Clinical Impression: Cerebrovascular accident Disposition: OTHER INSTITUTION NOT DEFINED Condition: Critical Referrals: Margarito Cotton MD [Primary Care Provider] - 1-2 days Time of Disposition: 14:26 - Out of Hospital Transfer - Req. Specs Out of Hospital Transfer - Requested Specifics: Other Emergency Center ([facility])
[2018-02-18 12:56] LABS: Basophils % (A) 1 %; Eosinophils # (A) 0.1 k/uL (0-0.7); Eosinophils % (A) 2 %; HCT 32.1 % (34.0-46.0); HGB 9.9 gm/dL (11.4-16.0); Hypochromasia Marked; Lymphocytes # (A) 2.5 k/uL (1.0-4.8); Lymphocytes % (A) 34 %; MCH 26.6 pg (25.0-35.0); MCHC 30.7 g/dL (31.0-37.0); MCV 86.5 fL (80.0-100.0); Mean Platelet Volume 6.2; Monocytes # (A) 0.6 k/uL (0-1.0); Monocytes % (A) 8 %; Neutrophils # (A) 3.8 k/uL (1.3-7.7); Neutrophils % (A) 52 %; Platelet Count 344 k/uL (150-450); RBC 3.71 m/uL (3.80-5.40); RDW 15.6 % (11.5-15.5); WBC 7.3 k/uL (3.8-10.6)
[2018-02-18] MEDS ORDERED: FAMOTIDINE 20 MG/2 ML VIAL IV ONE (13:20)
[2018-02-18] MEDS ORDERED: methylPREDNISolone SOD SUCCI 125 MG/2 ML VIAL IV STA (13:20)
[2018-02-18] MEDS ORDERED: diphenhydrAMINE 50 MG/ML 1 ML VIAL IVP ONE (13:20)
--- NOTE | 2018-02-18 13:23 | CT ---
EXAMINATION TYPE: CT brain wo con for TPA DATE OF EXAM: 02/18/2018 COMPARISON: 12/02/2017 INDICATION: RT sided neuro deficit DLP: 1428.4 mGycm, Automated exposure control for dose reduction was used. CONTRAST: None CT of the brain is performed utilizing 3 mm thick sections through the posterior fossa and 3 mm thick sections through the remaining calvarium. Study is performed within 24 hours of arrival to the hosp ital. No abnormal hyperdensity is present to suggest an acute intracranial hemorrhage. No mass lesion is evident. There is a right parietal-occipital watershed infarct. Mild mass effect on the adjacent sulci is evid ent. This is likely subacute not present on the comparison. There is periventricular white matter hyp odensity likely on the basis of chronic white matter ischemic changes. Left side hemisphere does not have any acute radiologic changes. Ventricles and sulci are somewhat prominent for the patient age. Paranasal sinuses and mastoid air cells within the [id number] are clear. Hyperostosis frontalis in ternus is present, normal variant. IMPRESSIONS: 1. There appears be an acute to subacute infarct within the right watershed region. Correlate with the patient's reported right side neuro deficits. 2. Chronic appearing periventricular white matter ischemic changes.
[2018-02-18 13:27] LABS: Creatine Kinase 59 U/L (30-135)
[2018-02-18 13:40] LABS: Troponin I <0.012 ng/mL (0.000-0.034)
[2018-02-18 13:53] LABS: INR 1.3 (<1.2); Partial Thromboplastin Time 28.5 sec (22.0-30.0); Prothrombin Time 12.5 sec (9.0-12.0)
[2018-02-18 13:58] LABS: Albumin 3.5 g/dL (3.5-5.0); Calcium 8.9 mg/dL (8.4-10.2); Potassium 4.3 mmol/L (3.5-5.1); Total Bilirubin 0.4 mg/dL (0.2-1.3); Total Protein 7.7 g/dL (6.3-8.2)
--- NOTE | 2018-02-18 14:19 | XR ---
EXAMINATION TYPE: XR chest 2V DATE OF EXAM: 02/18/2018 COMPARISON: Prior chest dated 12/02/2017 HISTORY: Altered mental status TECHNIQUE: Frontal and lateral views of the chest are obtained. FINDINGS: Postop change noted to the left shoulder. Left subclavian central venous catheter shows th e distal tip overlying superior vena cava. No evident pneumothorax or pleural effusion. Heart is enla rged. Aorta is dense. Interstitium is increased. No pneumothorax or pleural effusion. Central vascula rity is prominent. Increased AP diameter chest may be indicative of underlying COPD. IMPRESSION: Correlate to exclude pulmonary venous hypertension and interstitial edema. Cardiomegaly.
--- NOTE | 2018-02-18 14:47 | CT ---
EXAMINATION TYPE: CT angio head neck DATE OF EXAM: 02/18/2018 HISTORY: Rt sided deficit COMPARISON: CT brain same date CT DLP: 849.9 mGycm. Automated Exposure Control for Dose Reduction was Utilized. TECHNIQUE: CTA scan of the neck is performed with IV Contrast, patient injected with 130 mL of Isovu e 370, axial images are obtained, coronal and sagittal reformatted images are reviewed. Three-D recon structed images are created on an independent workstation and reviewed. FINDINGS: Carotid/Vascular Structures: There is tortuosity the carotid arteries. The common carotid arteries bi furcate into internal and external carotid arteries. Internal carotid arteries are patent to the leve l of the [place]. [place]: A1 and M1 segments appear unremarkable. A2 segments are unremarkable. Basilar arter y is normal. The distal right vertebral artery narrows to the confluence with the basilar artery. Con fitness services manager some vertebral basilar spasm on the right. Posterior cerebral vasculature and distal middle cer ebral arteries where visualized appear normal. These extend towards the area of infarct in the right parietal-occipital watershed. No abrupt cut off is identified. Three-D reconstructed images are performed on a separate computer by the technologist. There appears to be a web with narrowing in the distal common right carotid artery. Left carotid artery with tortuo sity does not appear to have any significant narrowing. Other: Mucosal thickening is within the left sphenoid sinus. Mastoid air cells appear clear. IMPRESSION: 1. No significant flow-limiting stenosis at the carotid bifurcations. 2. 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 3. Narrowing of the distal right vertebral artery. Consider vasospasm. 4. An abrupt cut off extending towards the right watershed infarct is not identified.
[2018-02-18 15:48] LABS: Appearance,Urine Clear (Clear); Bilirubin,Urine Negative (Negative); Blood,Urine Negative (Negative); Color,Urine Light Yellow; Glucose,Urine (UA) Negative (Negative); Ketones,Urine Negative (Negative); Leukocyte Esterase,Urine Negative (Negative); Nitrite,Urine Negative (Negative); PH, Urine 7.5 (5.0-8.0); Protein,Urine Trace (Negative); Specific Gravity,Urine 1.024 (1.001-1.035); Urobilinogen,Urine <2.0 mg/dL (<2.0)
[2018-02-18 21:58] VITALS: BP 134/80; PULSE 62; RESP 18; TEMP 98.6
== END 2018-02-18 16:15 | disposition other institution (70) ==
LOC: EC 12:35
DX: I63.9 Cerebral infarction, unspecified (principal); R29.728 NIHSS score 28; I48.91 Unspecified atrial fibrillation; J44.9 Chronic obstructive pulmonary disease, unspecified; I25.10 Atherosclerotic heart disease of native coronary artery without angina pectoris; I11.0 Hypertensive heart disease with heart failure; I50.9 Heart failure, unspecified; K21.9 Gastro-esophageal reflux disease without esophagitis; E78.5 Hyperlipidemia, unspecified; M19.90 Unspecified osteoarthritis, unspecified site; G40.909 Epilepsy, unspecified, not intractable, without status epilepticus; E11.40 Type 2 diabetes mellitus with diabetic neuropathy, unspecified; E03.9 Hypothyroidism, unspecified; F03.90 Unspecified dementia, unspecified severity, without behavioral disturbance, psychotic disturbance, mood disturbance, and anxiety; I27.20 Pulmonary hypertension, unspecified; M19.011 Primary osteoarthritis, right shoulder; Z92.21 Personal history of antineoplastic chemotherapy; Z86.718 Personal history of other venous thrombosis and embolism; Z85.118 Personal history of other malignant neoplasm of bronchus and lung; Z66 Do not resuscitate; Z95.5 Presence of coronary angioplasty implant and graft; Z96.612 Presence of left artificial shoulder joint; Z96.653 Presence of artificial knee joint, bilateral; Z96.643 Presence of artificial hip joint, bilateral; Z87.891 Personal history of nicotine dependence; Z99.81 Dependence on supplemental oxygen; Z86.14 Personal history of Methicillin resistant Staphylococcus aureus infection; Z79.84 Long term (current) use of oral hypoglycemic drugs; Z79.01 Long term (current) use of anticoagulants; Z79.891 Long term (current) use of opiate analgesic; Z79.51 Long term (current) use of inhaled steroids; Z79.899 Other long term (current) drug therapy; Z91.041 Radiographic dye allergy status; Z91.048 Other nonmedicinal substance allergy status; Z88.1 Allergy status to other antibiotic agents; Z91.018 Allergy to other foods; Z88.0 Allergy status to penicillin; Z88.8 Allergy status to other drugs, medicaments and biological substances
CPT/HCPCS: 96375 ×3; 96361 ×4; 99285 ×2; 51702 ×2; 96374 ×2; 36415; 93005; 80053; 82550; 82553; 84484; 85025; 85610; 85730; 81003; 71046; 70496; 70450; 70498; J1200; J2930; Q9967